=== PATIENT | female | born 1940 | race Caucasian/White ===

== ENCOUNTER 2018-03-11 23:51 | Emergency (ER) | payer OTHER, MEDICARE ==
--- NOTE | 2018-03-12 00:09 | ED DYSPNEA/ASTHMA COMPLAINT ---
History of Present Illness General Chief Complaint: Dyspnea (COPD, CHF, Other) Stated Complaint: DIFF BREATHING Source: patient Exam Limitations: no limitations Vital Signs & Intake/Output Vital Signs & Intake/Output Vital Signs Date Time Temp Pulse Resp B/P B/P Pulse O2 O2 Flow FiO2 Mean Ox Delivery Rate 03/12 0231 74 20 93 Room Air Room Air 03/12 0039 95 Room Air Room Air 03/12 0029 96 03/12 0016 97.7 70 20 151/76 95 Room Air Allergies Coded Allergies: codeine (Intermediate, LIGHTHEADED 03/12/18) Reconcile Medications Prednisolone 15 MG/5 ML SOLUTION 10 ML PO QDAY bronchospasm Triage Nurses Notes Reviewed? yes Onset: Gradual Duration: day(s): Timing: recent history Severity: moderate Activities at Onset: none Prior Episodes/Possible Cause: unknown cause Modifying Factors: Improves With: rest. Associated Symptoms: cough, wheezing HPI: 77 yo woman h/o copd, presents with 1-2 hours of dyspnea and wheezing while in the car. She notes no chest pain, sputum, dizziness, nausea, vomiting. She is otherwise well. Past History Travel History Traveled to [place] past 21 day No Medical History Any Pertinent Medical History? see below for history Respiratory: COPD Surgical History Surgical History: non-contributory Family History Hx Contributory? No Review of Systems Review of Systems Constitutional: Denies: see HPI. Physical Exam Physical Exam Respiratory: wheezing Comments: Review of Systems - except as otherwise noted in HPI Review of Systems Constitutional:no symptoms. EENTM:no symptoms. Respiratory:no symptoms. Cardiovascular:no symptoms. GI:no symptoms. Genitourinary:no symptoms. Musculoskeletal:no symptoms. Skin:no symptoms. Neurological/Psychological:no symptoms. Hematologic/Endocrine:no symptoms. Immunologic/Allergic:no symptoms. All Other Systems: Reviewed and Negative Physical Exam Physical Exam General Appearance: well developed/nourished, no apparent distress Head: atraumatic, normal appearance Eyes: Bilateral: normal appearance. Ears, Nose, Throat: normal pharynx, normal ENT inspection Neck: normal inspection, supple, full range of motion Respiratory: MODERATE WHEEZING BILATERALLY, SYMMETRICAL, PROLONGED EXPIRATORY PHASE Cardiovascular: regular rate/rhythm Gastrointestinal: normal bowel sounds, soft, non-tender, no organomegaly Back: normal inspection, normal range of motion Extremities: normal inspection, normal capillary refill, normal range of motion, no edema Neurologic/Psych: no motor/sensory deficits, awake, alert, oriented x 3 Skin: intact, normal color, warm/dry Core Measures ACS in differential dx? No CVA/TIA Diagnosis No Sepsis Present: No Sepsis Focused Exam Completed? No Progress Differential Diagnosis: asthma, bronchitis, CHF, COPD, pneumonia Plan of Care: Orders Procedure Date/time Status TROPONIN LEVEL 03/11 2358 Complete LIPASE 03/11 2358 Complete HEPATIC FUNCTION PANEL 03/11 2358 Complete D-DIMER 03/11 2358 Complete CBC WITHOUT DIFFERENTIAL 03/11 2358 Complete BASIC METABOLIC PANEL 03/11 2358 Complete AMYLASE 03/11 2358 Complete EKG 03/11 2353 Active Laboratory Tests 03/12/18 0029: Anion Gap 11, Estimated GFR 48 L, BUN/Creatinine Ratio 11.8, Glucose 83, Calcium 10.5 H, Total Bilirubin 0.5, Direct Bilirubin 0.2, AST 21, ALT 23, Alkaline Phosphatase 132 H, Troponin I < 0.01, Total Protein 7.2, Albumin 4.0, Amylase 39, Lipase 32, D-Dimer High Sensitivty 945 H, CBC w Diff NO MAN DIFF REQ, RBC 4.13 L, MCV 95.4, MCH 32.2 H, MCHC 33.7, RDW 13.8, MPV 7.4, Gran % 58.8, Lymphocytes % 26.6, Monocytes % 10.1 H, Eosinophils % 3.7, Basophils % 0.8, Absolute Granulocytes 5.6, Absolute Lymphocytes 2.5, Absolute Monocytes 1.0 H, Absolute Eosinophils 0.4, Absolute Basophils 0.1 Diagnostic Imaging: Viewed by Me: Radiology Read, CT Scan. Discussed w/RAD: Radiology Read, CT Scan. Radiology Impression: PATIENT: ARNOL BLACKWOOD PRESENT AGE: 77 PATIENT ACCOUNT NO: [id number] : 38 LOCATION: [facility] ORDERING PHYSICIAN: Rigo Villela MD SERVICE DATE: 03/12/18 EXAM TYPE: CAT - CTA CHEST-PULMONARY EMBOLISM EXAMINATION: CT ANGIOGRAM OF THE CHEST WITH AND WITHOUT CONTRAST (CT PULMONARY ANGIOGRAM FOR PE) CLINICAL INFORMATION: Dyspnea. COMPARISON: Radiograph from 03/11/2019 TECHNIQUE: Prior to contrast administration, noncontrast localization images were obtained. Subsequently, multidetector volumetric imaging was performed from the thoracic inlet to below the diaphragms following the administration of 60 mL Optiray 320 intravenous contrast. No contrast reaction reported. Sagittal, coronal, and MIP oblique sagittal reformatted images were obtained on the CT workstation, uploaded to PACS, and reviewed. Total exam dose-length product 155 mGy-cm. FINDINGS: QUALITY OF STUDY/CONTRAST BOLUS: Satisfactory PULMONARY ARTERIES: No central or segmental pulmonary emboli. THORACIC AORTA: No aneurysm or dissection. Tortuous course of the aorta with mild atherosclerotic calcifications. There is partial visualization of an abdominal aortic aneurysm, measuring 3.6 cm AP. Stenosis at the origin of the right main renal artery. LUNG : Linear secretions noted within the trachea extending into the right mainstem bronchus. There is severe centrilobular emphysema. No dense consolidation. Right upper lobe peripheral calcified granuloma. PLEURA: No pleural effusion or pneumothorax. MEDIASTINUM: The heart is normal in size. There is a small pericardial effusion. No mediastinal lymphadenopathy. Large hiatal hernia. No evidence of septal bowing or right heart strain. CHEST WALL/AXILLA: No axillary or internal mammary lymphadenopathy. OSSEOUS STRUCTURES: No acute or suspicious osseous abnormality. Prominent thoracic kyphosis. Multilevel vertebral body compression deformities. UPPER ABDOMEN: Left renal upper pole 0.2 cm calculus, 7 cm from the posterior axillary line. Right renal cyst. No reflux of contrast into the hepatic veins to suggest elevated right heart pressures. IMPRESSION: 1. No pulmonary embolism. 2. Severe emphysema. 3. 3.6 cm abdominal aortic aneurysm. VTE: negative DICTATED BY: Bryce Álvarez MD DATE/TIME DICTATED:03/12/18207 MAINTENANCE ANALYST:FELICITA DATE/TIME TRANSCRIBED:03/12/18207 CONFIDENTIAL, DO NOT COPY WITHOUT APPROPRIATE AUTHORIZATION. <Electronically signed in Other Vendor System> SIGNED BY: Bryce Álvarez MD 03/12/18215 CXR Impression: PATIENT: ARNOL BLACKWOOD PRESENT AGE: 77 PATIENT ACCOUNT NO: [id number] : 38 LOCATION: [facility] ORDERING PHYSICIAN: Rigo Villela MD SERVICE DATE: 03/11/189959 EXAM TYPE: RAD - XRY- PORTABLE CHEST XRAY EXAMINATION: XR PORTABLE CHEST CLINICAL INFORMATION: Chest pain COMPARISON: None TECHNIQUE: Portable frontal view of the chest was obtained. FINDINGS: The lungs are well expanded. Prominent interstitial markings are seen bilaterally. No pleural effusion or pneumothorax. The cardiac silhouette is normal in size with a tortuous and calcified aorta. There may be a hiatal hernia. No acute osseous abnormality noted. IMPRESSION: Prominent interstitial markings are present bilaterally. The appearance is nonspecific, particularly with no prior studies for comparison. Considerations include chronic change, mild edema, or a small airways process. DICTATED BY: Bryce Álvarez MD DATE/TIME DICTATED:03/12/1832 MAINTENANCE ANALYST:FELICITA DATE/ TIME TRANSCRIBED:03/12/1832 CONFIDENTIAL, DO NOT COPY WITHOUT APPROPRIATE AUTHORIZATION. <Electronically signed in Other Vendor System> SIGNED BY: Bryce Álvarez MD 03/12/1837 Initial ED EKG: sinus rhythm, no acute changes. Departure Departure Disposition: HOME OR SELF CARE Condition: Stable Clinical Impression Primary Impression: COPD exacerbation Referrals: Ca Simmons APRN (PCP/Family) Departure Forms: Customer Survey General Discharge Information Prescriptions: Current Visit Scripts Prednisolone 10 ML PO QDAY #50 ML Comments 03/12/18, 2:36am... pt feeling better, stable 02 sat throughout ed stay without 02. upon repeat exam, pt with clear lungs labs/cxr/ct scan benign... pt safe for discharge.... close follow up advised. Critical Care Note Critical Care Note Critical Care Time: non-applicable
[2018-03-12 00:16] VITALS: BP 151/76
--- NOTE | 2018-03-12 00:38 | RADIOLOGY REPORT ---
EXAMINATION: XR PORTABLE CHEST CLINICAL INFORMATION: Chest pain COMPARISON: None TECHNIQUE: Portable frontal view of the chest was obtained. FINDINGS: The lungs are well expanded. Prominent interstitial markings are seen bilaterally. No pleural effusion or pneumothorax. The cardiac silhouette is normal in size with a tortuous and calcified aorta. There may be a hiatal hernia. No acute osseous abnormality noted. IMPRESSION: Prominent interstitial markings are present bilaterally. The appearance is nonspecific, particularly with no prior studies for comparison. Considerations include chronic change, mild edema, or a small airways process.
[2018-03-12 00:50] LABS: ABSOLUTE BASOPHIL COUNT 0.1 /CUMM (0.0-0.2); ABSOLUTE EOSINOPHIL COUNT 0.4 /CUMM (0.0-0.7); ABSOLUTE GRANULOCYTE CT 5.6 /CUMM (1.4-6.5); ABSOLUTE LYMPH COUNT 2.5 /CUMM (1.2-3.4); BASOPHIL % 0.8 % (0.0-2.0); EOSINOPHIL % 3.7 % (0-5); GRANULOCYTE % 58.8 % (42.2-75.2); HEMATOCRIT 39.5 % (37-47); MEAN CORPUSCULAR HGB 32.2 PG (27.0-31.0); MEAN CORPUSCULAR HGB CONC 33.7 G/DL (33.0-37.0); MEAN CORPUSCULAR VOLUME 95.4 FL (81.0-99.0); MEAN PLATELET VOLUME 7.4 FL (7.4-10.4); PLATELET COUNT 320 /CUMM (130-400); RBC DISTRIBUTION WIDTH 13.8 % (11.5-14.5); RED BLOOD CELL CT 4.13 /CUMM (4.20-5.40); WHITE BLOOD CELL COUNT 9.5 /CUMM (4.8-10.8)
--- NOTE | 2018-03-12 02:16 | CT SCAN REPORT ---
EXAMINATION: CT ANGIOGRAM OF THE CHEST WITH AND WITHOUT CONTRAST (CT PULMONARY ANGIOGRAM FOR PE) CLINICAL INFORMATION: Dyspnea. COMPARISON: Radiograph from 03/11/2019 TECHNIQUE: Prior to contrast administration, noncontrast localization images were obtained. Subsequently, multidetector volumetric imaging was performed from the thoracic inlet to below the diaphragms following the administration of 60 mL Optiray 320 intravenous contrast. No contrast reaction reported. Sagittal, coronal, and MIP oblique sagittal reformatted images were obtained on the CT workstation, uploaded to PACS, and reviewed. Total exam dose-length product 155 mGy-cm. FINDINGS: QUALITY OF STUDY/CONTRAST BOLUS: Satisfactory PULMONARY ARTERIES: No central or segmental pulmonary emboli. THORACIC AORTA: No aneurysm or dissection. Tortuous course of the aorta with mild atherosclerotic calcifications. There is partial visualization of an abdominal aortic aneurysm, measuring 3.6 cm AP. Stenosis at the origin of the right main renal artery. LUNG: Linear secretions noted within the trachea extending into the right mainstem bronchus. There is severe centrilobular emphysema. No dense consolidation. Right upper lobe peripheral calcified granuloma. PLEURA: No pleural effusion or pneumothorax. MEDIASTINUM: The heart is normal in size. There is a small pericardial effusion. No mediastinal lymphadenopathy. Large hiatal hernia. No evidence of septal bowing or right heart strain. CHEST WALL/AXILLA: No axillary or internal mammary lymphadenopathy. OSSEOUS STRUCTURES: No acute or suspicious osseous abnormality. Prominent thoracic kyphosis. Multilevel vertebral body compression deformities. UPPER ABDOMEN: Left renal upper pole 0.2 cm calculus, 7 cm from the posterior axillary line. Right renal cyst. No reflux of contrast into the hepatic veins to suggest elevated right heart pressures. IMPRESSION: 1. No pulmonary embolism. 2. Severe emphysema. 3. 3.6 cm abdominal aortic aneurysm. VTE: negative
[2018-03-12] MEDS ORDERED: PREDNISOLO15 MG/5 M4 PO (02:27)
== END 2018-03-12 02:40 ==
LOC: ERH 23:51
PROVIDERS: Pediatrics
DX: J44.1 Chronic obstructive pulmonary disease with (acute) exacerbation (principal)
CPT/HCPCS: 71045; 93005; 93010; 96374; J2930

== ENCOUNTER 2018-07-04 19:59 | Inpatient (IN) | payer OTHER, MEDICARE ==
[~2018-07-04] VITALS: Ht 144.8 cm; Wt 49.0 kg
[~2018-07-04 19:59] MED LIST: PREDNISOLO15 MG/5 M4 PO
[2018-07-04 21:01] LABS: ABSOLUTE BASOPHIL COUNT 0 /CUMM (0.0-0.2); ABSOLUTE EOSINOPHIL COUNT 0.3 /CUMM (0.0-0.7); ABSOLUTE GRANULOCYTE CT 4.5 /CUMM (1.4-6.5); ABSOLUTE LYMPH COUNT 2.4 /CUMM (1.2-3.4); ABSOLUTE MONOCYTE COUNT 0.7 /CUMM (0.10-0.60); BASOPHIL % 0.4 % (0.0-2.0); EOSINOPHIL % 3.2 % (0-5); GRANULOCYTE % 57.5 % (42.2-75.2); HEMATOCRIT 40.2 % (37-47); MEAN CORPUSCULAR HGB 31.2 PG (27.0-31.0); MEAN CORPUSCULAR HGB CONC 33.3 G/DL (33.0-37.0); MEAN CORPUSCULAR VOLUME 93.7 FL (81.0-99.0); MEAN PLATELET VOLUME 6.7 FL (7.4-10.4); PLATELET COUNT 346 /CUMM (130-400); RBC DISTRIBUTION WIDTH 13.7 % (11.5-14.5); RED BLOOD CELL CT 4.29 /CUMM (4.20-5.40); WHITE BLOOD CELL COUNT 7.9 /CUMM (4.8-10.8)
--- NOTE | 2018-07-04 21:05 | RADIOLOGY REPORT ---
EXAMINATION: XR CHEST CLINICAL INFORMATION: Shortness of breath COMPARISON: Chest x-ray 03/12/2018 TECHNIQUE: 2 views of the chest were obtained. FINDINGS: There is a large hiatal hernia. No change of the cardiac and mediastinal contours. Thoracic aorta is uncoiled with calcifications of the wall. There is stable mild increased interstitial lung markings. There is no acute infiltrate. There is no pulmonary vascular congestion. There is no pleural effusion or pneumothorax. There is a kyphosis of dorsal spine with multilevel compression deformities of vertebrae. Compared to the prior chest x-ray there has been no change IMPRESSION: No acute abnormality of the chest.
--- NOTE | 2018-07-05 01:35 | ED DYSPNEA/ASTHMA COMPLAINT ---
History of Present Illness General Chief Complaint: Dyspnea (COPD, CHF, Other) Stated Complaint: "DIFF. BREATHING, HX COPD" Source: patient, family, old records Exam Limitations: no limitations Vital Signs & Intake/Output Vital Signs & Intake/Output Vital Signs Date Time Temp Pulse Resp B/P B/P Pulse O2 O2 Flow FiO2 Mean Ox Delivery Rate 07/05 0541 96.0 104 20 142/65 94 Room Air 07/05 0511 94 07/05 0449 96.8 103 28 178/82 94 Room Air 07/05 0215 93 07/05 0120 Room Air 07/05 0100 98.0 97 22 178/74 95 Room Air 07/05 0055 99 Aerosol 9L Mask 07/05 0045 95 07/04 2028 96.9 87 18 123/68 95 Room Air Allergies Coded Allergies: codeine (Intermediate, LIGHTHEADED 03/12/18) Reconcile Medications Albuterol Sulfate (Ventolin Hfa) 90 MCG HFA.AER.AD 2 PUF INH Q4-6 PRN PRN COPD (Reported) Amlodipine Besylate 5 MG TABLET 1 TAB PO DAILY HTN (Reported) Benazepril HCl 20 MG TABLET 1 TAB PO DAILY HTN (Reported) Levothyroxine Sodium 50 MCG TABLET 1 TAB PO DAILY HYPOTHYROIDISM (Reported) Omeprazole 20 MG CAPSULE.DR 1 CAP PO DAILY REFLUX (Reported) Prednisolone 15 MG/5 ML SOLUTION 10 ML PO QDAY bronchospasm Simvastatin (Simvastatin*) 10 MG TABLET 1 TAB PO QPM HLD (Reported) Triage Note: PT TO ED WITH C/O WORSENING SOB BEGINNING 1.5 HOURS AGO. DENIES CP. WAS WALKING WHEN SYMPTOMS BEGAN. HX COPD, +SMOKER. TOOK INHALER W/O RELIEF. 02 SAT 95% RA IN TRIAGE. ABLE TO SPEAK IN FULL SENTENCES. Triage Nurses Notes Reviewed? yes Onset: Just prior to arrival Duration: hour(s):, constant, continues in ED, getting worse Timing: recent history Severity: moderate, severe Activities at Onset: activity Prior Episodes/Possible Cause: occasional episodes Modifying Factors: Improves With: rest. Worsens With: movement. Associated Symptoms: cough, wheezing, weakness LMP (ages 10-50): post menopausal : No Patient currently breastfeeds: No HPI: Several hours prior to admission patient complains of increasing shortness of breath chest tightness productive cough of white sputum. She denies fever chills nausea vomiting diarrhea abdominal pain chest pain headache dysuria rash bleeding. Past History Travel History Traveled to [place] past 21 day No Medical History Any Pertinent Medical History? see below for history Neurological: NONE EENT: NONE Cardiovascular: hypertension Respiratory: COPD Gastrointestinal: NONE Hepatic: NONE Renal: NONE Musculoskeletal: NONE Psychiatric: NONE Endocrine: hypothyroidism Surgical History Surgical History: non-contributory Psychosocial History What is your primary language Greek Tobacco Use: Current Daily Use Daily Tobacco Use Amount/Type: => 5 Cigarettes daily Family History Hx Contributory? No Review of Systems Review of Systems Constitutional: Reports: see HPI, weakness. EENTM: Reports: no symptoms. Respiratory: Reports: see HPI, cough, short of breath, sputum production. Cardiovascular: Reports: see HPI, chest pain. GI: Reports: no symptoms. Genitourinary: Reports: no symptoms. Musculoskeletal: Reports: no symptoms. Skin: Reports: no symptoms. Hematologic/Endocrine: Reports: no symptoms. Immunologic/Allergic: Reports: no symptoms. All Other Systems: Reviewed and Negative Physical Exam Physical Exam General Appearance: well developed/nourished, alert, awake, anxious, moderate distress, severe distress, obese Head: atraumatic, normal appearance Eyes: Bilateral: normal appearance, PERRL, EOMI. Ears, Nose, Throat: normal pharynx, normal ENT inspection, hearing grossly normal Neck: normal inspection, supple, full range of motion, no midline tenderness Respiratory: chest non-tender, decreased breath sounds, rhonchi, respiratory distress Cardiovascular: regular rate/rhythm, murmur, normal peripheral pulses, norml femoral pulses equa Peripheral Pulses: 4+ carotid (R), 4+ carotid (L) Gastrointestinal: normal bowel sounds, soft, non-tender, no organomegaly Extremities: normal inspection, pedal edema Neurologic/Psych: no motor/sensory deficits, awake, alert, oriented x 3, normal gait, disoriented x 3 Skin: intact Lymphatic: no anterior cervical carlito Core Measures ACS in differential dx? No CVA/TIA Diagnosis No Sepsis Present: No Sepsis Focused Exam Completed? No Progress Differential Diagnosis: asthma, bronchitis, CHF, COPD, pneumonia Plan of Care: Orders Procedure Date/time Status Heart Healthy Diet 07/05 B Active TROPONIN LEVEL 07/05 06 Complete MAGNESIUM 07/05 06 Complete BASIC ELECTROLYTES PLUS BUN&CR 07/05 06 Complete EKG 07/05 0600 Active Weight 07/05 0506 Active Teach/Educate 07/05 0506 Active Pain Treatment and Response 07/05 0506 Active Nutritional Intake, Monitor 07/05 0506 Active Isolation 07/05 0506 Active Patient Care Conference 07/05 0506 Active ECHOCARDIOGRAM 07/05 0442 Active TRC EVALUATION (GEN) 07/05 0440 Active OXYGEN SETUP (GEN) 07/05 0440 Active PT Evaluate & Treat 07/05 044 Active Saline Lock 07/05 044 Active Pathway - chart 07/05 044 Active House Staff 07/05 044 Active Code Status 07/05 044 Active Patient Data 07/05 0259 Active OXYGEN SETUP (GEN) 07/05 022 Active Saline Lock 07/05 022 Active Admit to inpatient 07/05 022 Active Vital Signs 07/05 022 Active Code Status 07/05 022 Complete Intake & Output 07/05 010 Active VTE Mechanical Prophylaxis 07/05 UNK Active Heat/Cold Therapy 07/05 UNK Active Activity/Ambulation 07/05 UNK Active TROPONIN LEVEL 07/04 2033 Complete MAGNESIUM 07/04 2033 Complete COMPREHENSIVE METABOLIC PANEL 07/04 2033 Complete CBC WITHOUT DIFFERENTIAL 07/04 2033 Complete EKG 07/04 2004 Active Current Medications Sig/Arik Start time Last Medication Dose Stop Time Status Admin Atorvastatin Calcium 5 MG 1700 07/05 1700 AC (Lipitor) Amlodipine Besylate 5 MG DAILY 07/05 0900 AC (Norvasc) Lisinopril 20 MG DAILY 07/05 09 AC (Prinivil) Omeprazole 20 MG DAILY 07/05 09 AC (Prilosec) Levothyroxine Sodium 0.05 MG DAILY AC 07/05 0700 AC (Synthroid) Albuterol Sulfate 3 ML Q6 07/05 06 AC (Proventil) Heparin Sodium 5,000 UNIT Q8 07/05 06 AC (Porcine) Acetaminophen 650 MG Q6P PRN 07/05 0445 AC (Tylenol) Ipratropium Hubbell 2.5 ML Q6-PRN PRN 07/05 044 AC (Atrovent) Lidocaine 1 PAT Q24H PRN 07/05 044 AC (Lidoderm) Laboratory Tests 07/05/18 0540: Anion Gap 9, Estimated GFR > 60, BUN/Creatinine Ratio 15.7, Magnesium 1.7, Troponin I < 0.01 07/04/18 2055: Anion Gap 7, Estimated GFR > 60, BUN/Creatinine Ratio 14.3, Glucose 106 H, Calcium 10.7 H, Magnesium 1.9, Total Bilirubin 0.5, AST 25, ALT 26, Alkaline Phosphatase 113, Troponin I < 0.01, Total Protein 7.3, Albumin 4.1, Globulin 3.2 , Albumin/Globulin Ratio 1.3, CBC w Diff NO MAN DIFF REQ, RBC 4.29, MCV 93.7, MCH 31.2 H, MCHC 33.3, RDW 13.7, MPV 6.7 L, Gran % 57.5, Lymphocytes % 30.1, Monocytes % 8.8, Eosinophils % 3.2, Basophils % 0.4, Absolute Granulocytes 4.5, Absolute Lymphocytes 2.4, Absolute Monocytes 0.7 H, Absolute Eosinophils 0.3, Absolute Basophils 0 Diagnostic Imaging: Viewed by Me: Radiology Read. Discussed w/RAD: Radiology Read. CXR Impression: no acute abnormality, no infiltrates Initial ED EKG: normal axis, normal intervals, normal p-waves, normal QRS complex, normal sinus rhythm, nonspecific ST T wave chg Prior EKG: unchanged Rhythm Strip: sinus tachycardia Departure Departure Disposition: STILL A PATIENT Condition: Stable Clinical Impression Primary Impression: COPD exacerbation Secondary Impressions: Hyponatremia Referrals: Sena Araya APRN (PCP/Family) Departure Forms: Customer Survey General Discharge Information Admission Note Spoke With: Honorio Sanders MD Documentation of Exam: Documentation of any treatments & extenuating circumstances including Concerns Regarding Discharge (functional status, medication knowledge or non-compliance, living conditions, etc.) that warrant an admission rather than observation: Supplemental oxygen serial beta agonist nebs IV steroids serial lab exam pulmonary evaluation medication adjustment continuing care discharge planning Critical Care Note Critical Care Note Critical Care Time: non-applicable
--- NOTE | 2018-07-05 03:22 | History & Physical ---
Arnoldo Burciaga 07/05/18 0321: General Information and HPI MD Statement: I have seen and personally examined ARNOL BLACKWOOD and documented this H&P. The patient is a 77 year old F who presented with a patient stated chief complaint of [hard time breathing]. Source of Information: patient Exam Limitations: poor historian History of Present Illness: 77 year old female with history of COPD not on O2 but active cigarette use, mitral regurgitation, AAA, presents to the ED with increased shortness of breath. The patient was at home walking with her daughter when she suddenly felt very short of breath and needed to sit down. Sitting down did not allow her to catch her breath and she was brought inside to lay down before being brought to the [place] ED. Although she would experience dyspnea after walking short distances at home prior to today, the patient now can only walk a few feet before becoming very short of breath. She denied chest pain, syncope or dizziness, headache, fever, chills. She did report associated palpitations and a worsening cough productive of whitish sputum for the past few days, as well as chronic edema of her lower extremities bilaterally. The patient currently smokes 5 cigarettes per day, and she has smoked all of her life, occasionally more and sometimes less, but regardless a very extensive smoking history. She denied alcohol or illicit drug use. Allergies/Medications Allergies: Coded Allergies: codeine (Intermediate, LIGHTHEADED 03/12/18) Home Med list Albuterol Sulfate (Ventolin Hfa) 90 MCG HFA.AER.AD 2 PUF INH Q4-6 PRN PRN COPD (Reported) Amlodipine Besylate 5 MG TABLET 1 TAB PO DAILY HTN (Reported) Benazepril HCl 20 MG TABLET 1 TAB PO DAILY HTN (Reported) Levothyroxine Sodium 50 MCG TABLET 1 TAB PO DAILY HYPOTHYROIDISM (Reported) Omeprazole 20 MG CAPSULE.DR 1 CAP PO DAILY REFLUX (Reported) Prednisolone 15 MG/5 ML SOLUTION 10 ML PO QDAY bronchospasm Simvastatin (Simvastatin*) 10 MG TABLET 1 TAB PO QPM HLD (Reported) Past History Travel History Traveled to [place] past 21 day No Medical History Neurological: NONE EENT: NONE Cardiovascular: hypertension Respiratory: COPD Gastrointestinal: NONE Hepatic: NONE Renal: NONE Musculoskeletal: NONE Psychiatric: NONE Endocrine: hypothyroidism Surgical History Surgical History: non-contributory Review of Systems Review of Systems Constitutional: Denies: chills, diaphoresis, fever. Cardiovascular: Reports: orthopena, palpitations, peripheral edema. Denies: chest pain. Respiratory: Reports: cough, orthopnea, short of breath, sputum production (whitish). GI: Denies: abdominal pain, nausea, vomiting. Neurological/Psychological: Denies: headache. Exam & Diagnostic Data Last 24 Hrs of Vital Signs/I&O Vital Signs Date Time Temp Pulse Resp B/P B/P Pulse O2 O2 Flow FiO2 Mean Ox Delivery Rate 07/05 0215 93 07/05 0120 Room Air 07/05 0100 98.0 97 22 178/74 95 Room Air 07/05 0055 99 Aerosol 9L Mask 07/05 0045 95 07/04 2028 96.9 87 18 123/68 95 Room Air Intake & Output 07/05 0800 07/05 0000 07/04 1600 Intake Total 1000 Output Total Balance 1000 Intake, IV 1000 Last 24 Hrs of Labs/Fantasma: Laboratory Tests 07/04/182054: Anion Gap 7, Estimated GFR > 60, BUN/Creatinine Ratio 14.3, Glucose 106 H, Calcium 10.7 H, Magnesium 1.9, Total Bilirubin 0.5, AST 25, ALT 26, Alkaline Phosphatase 113, Troponin I < 0.01, Total Protein 7.3, Albumin 4.1, Globulin 3.2 , Albumin/Globulin Ratio 1.3, CBC w Diff NO MAN DIFF REQ, RBC 4.29, MCV 93.7, MCH 31.2 H, MCHC 33.3, RDW 13.7, MPV 6.7 L, Gran % 57.5, Lymphocytes % 30.1, Monocytes % 8.8, Eosinophils % 3.2, Basophils % 0.4, Absolute Granulocytes 4.5, Absolute Lymphocytes 2.4, Absolute Monocytes 0.7 H, Absolute Eosinophils 0.3, Absolute Basophils 0 Assessment/Plan Assessment: 77 year old female with history of HTN, mitral regurgitation, COPD presents with dyspnea with minimal exertion. Problems: 1. Dyspnea likely secondary to worsened mitral regurgitation 2. COPD not requiring O2 3. HTN Plan: -Admit the patient to telemetry -Cardiology consultation -Echocardiogram -Lisinopril 20mg po daily -Amlodipine 5mg po daily -Lipitor 5mg po Q5pm -Levothyroxing 0.05mg po daily -Follow-up EKG & Troponin As Ranked By This Provider Problem List: 1. Dyspnea Core Measures/Misc (07/02) Acute Coronary Syndrome ACS Diagnosis: No Congestive Heart Failure Congestive Heart Failure Diagnosis No Cerebrovascular Accident CVA/TIA Diagnosis: No VTE (View Protocol) VTE Risk Factors Age>40 No Mechanical VTE Prophylaxis d/t N/A MechProphylax Ordered No VTE Pharm Prophylaxis d/t NA PharmProphylax ordered Sepsis (View protocol) Sepsis Present: No If YES complete Sepsis Event Note If YES complete Sepsis Event Note Leah Sepulveda MD 07/05/18 0328: Core Measures/Misc (07/02) Sepsis (View protocol) If YES complete Sepsis Event Note If YES complete Sepsis Event Note Resident Review Statement Resident Statement: examined this patient, discussed with architecture internship, agreed with architecture internship, reviewed EMR data (avail), amended to note Other Findings: Patient is a 77-year-old female with past medical history of COPD, hypertension, hypothyroidism, current smoker, heart murmur, abdominal aortic aneurysm, PVD presenting this admission with chief complaint of shortness of breath. Patient's history was limited as she was a poor historian. Patient's daughter was not present at the time of interview. Patient reports that day of admission she was walking outside her apartment at which point she started feeling short of breath and had difficulty catching her breath. Reports she sat down on a bench and felt slightly better and then returned to her apartment. After which she spoke to her daughter who brought her in to the ED for further evaluation. Patient reports she has recently experienced increased shortness of breath with exertion. Reports that it has been increasingly harder to walk shorter and shorter distances without getting short of breath. Reports a productive cough with white phlegm. Denies fever, chills, chest pain, orthopnea. Reports palpitations and lower extremity edema which she reports is chronic. Patient reports that her slip tender is Dr. Thomas when she saw one to 2 months ago and is unable to remember if she had any tests. Reports that she had no changes in her medications. Patient states that she sees Dr. Thomas due to a heart murmur and reports fluid around her heart. Patient has a history of COPD and is currently on an albuterol inhaler only. Reports that she is not on oxygen at home. Past medical history: As above Social history: Patient lives by herself, reports smoking 5 cigarettes per day which she has cut down significantly. States that she has been smoking "all her life". Denies any alcohol or other drug use. Patient reports ambulating independently. Allergies: Codeine (lightheadedness and dizziness) Medications: Amlodipine 5 mg, Benzapril 20 mg, levothyroxine 50 g, omeprazole 20 mg, simvastatin 10 mg On admission: MAXIMUM TEMPERATURE 98.0, heart rate 87-97, respiration rate 18-22, blood pressure initially 123/68 went up to 178/74, saturating between 95-99% on room air. Physical exam as above Labs significant only for sodium of 130, chloride 96, glucose 106, calcium 10.7 Chest x-ray was negative for any acute abnormality Patient is a 77-year-old female with past medical history significant for COPD, heart murmur likely mitral regurg with a loud pansystolic murmur heard on auscultation presenting with worsening dyspnea on exertion. Patient's chest x- ray was negative for any acute cardiopulmonary findings. On exam patient's lung sounds were clear to auscultation and patient did not appear fluid overloaded. Patient did have some bilateral lower extremity edema which is chronic. Patient in the ED he received IV Solu-Medrol 125 mg 1, DuoNeb treatments. Problems: Dyspnea secondary likely to mitral regurgitation and mild COPD exacerbation Hyponatremia Chronic conditions: COPD, hypertension, hypothyroidism, GERD, chronic bilateral lower extremity swelling, PVD Plan: Admit to telemetry Continuos telemetry monitoring IV Lasix 20 mg 1 Repeat EKG in the morning Monitor electrolytes Cardiology consult placed with Dr. Thomas TRNahum and CristobaloNeb's every 6 hours when necessary Blood pressure control with home medication: Amlodipine and benazepril Continue levothyroxine, omeprazole, simvastatin Diet: Heart healthy DVT prophylaxis: Alps and pharm Code: Full code Honorio Sanders 07/05/18 0333: Core Measures/Misc (07/02) Sepsis (View protocol) If YES complete Sepsis Event Note If YES complete Sepsis Event Note Attending MD Review Statement Attending Statement Attending MD Statement: examined this patient, discuss w/resident/PA/CODER OPERATOR, agreed w/resident/PA/CODER OPERATOR, discussed with family, reviewed EMR data (avail), reviewed images, amended to note Attending Assessment/Plan: Addendum by . Patient was seen and examined at bedside today ( 07/05/18 ) at 3 Am.. Reviewed the history physical done by the resident. Reviewed the past medical family, family, social history. ROS: 10 point system reviewed and negative except as described above. Additional details: Patient is 77 years old female with history of hypertension, hyperlipidemia, chronic leg swelling bilaterally, abdominal aortic exam of 4.3 cm, kyphosis, mild COPD, active smoker, who has baseline dyspnea, who cannot walk more than a few yards at home was brought in for evaluation of increased shortness of breath and cough. Patient and family says that she usually walks a few steps in and around the home before getting short of breath. But for the last couple of days she is not able to walk even usual distances, also started having cough with increased sputum. No fever, chest pain, palpitations or other complaints. She has a chronic leg edema. She also has a vascular disease. She smokes 5 cigarettes a day. Not on any Lasix at home. ED initially admitted the patient for COPD exacerbation. Exam: Alert, awake, oriented 3, able to speak full sentences. No JVD, neck is supple, no thyromegaly. Kyphosis of thoracic spine noted. Lungs-no wheezing, no crackles. Cardiac examination-pansystolic murmur heard all of the chest but more prominent in the apical area in the left mid axillary area. Bilateral 3+ leg edema up to knees. Chest x-ray, prior CT chest, labs, PFTs are reviewed. Assessment and plan: #Worsening dyspnea, cough: This is likely due to her valvular heart disease mitral regurgitation or AR (no echo is available in system). patient has chronic dyspnea at baseline likely due to valvular disease, COPD. As per PFT done in December 2017 patient has mild COPD, on current examination does not suggest COPD exacerbation. Will put her on 20 mg IV Lasix daily. Get an echocardiogram. Also get cardiology evaluation. Patient has her own slip tender as an outpatient. Further management depending on the severity of the mitral valve and cardiology input. #mild COPD-do not think patient is an exacerbation. We will give her DuoNeb's. # htn- bp elevated, resume norvasc, add lisinopril if bp still, #hyponatremia, likely hypervolumic, expect to get better with lasix. watch. #hypercalcemia, repeat in am. #severe thoracic spine kyphosis-might be contributing to her dyspnea. #Bilateral leg swelling. Continue with the Lasix. Patient also has history of peripheral vascular disease. She is here to follow with vascular surgery as an outpatient. #History of hypothyroidism, hypertension-continue those medications. #Abdominal aortic aneurysm of 4.3 cm as per the family. #Smoker-smoking cessation was advised. Admit to telemetry. Reviewed with the resident. Agree with the rest of the plan as per resident's note. Dr.Ravinder Guillermina MD. Hospitalist. Pager: [phone], cell: [phone].
[2018-07-05] MEDS ORDERED: VENTOLIN HFA18 GM INH (04:46)
[2018-07-05] MEDS ORDERED: LEVOTHYROXINE50 MCG PO (04:46)
[2018-07-05] MEDS ORDERED: SIMVASTATIN10 M1 PO (04:47)
[2018-07-05] MEDS ORDERED: BENAZEPRIL HCL20 MG PO (04:47)
[2018-07-05] MEDS ORDERED: AMLODIPINE BESYL5 M1 PO (04:47)
[2018-07-05] MEDS ORDERED: OMEPRAZOLE20 M2 PO (04:48)
[2018-07-05 07:00] VITALS: BP 148/65
--- NOTE | 2018-07-05 08:27 | PN- Student ---
Subjective Subjective: Patient was seen and examined this am. Patient was alert and cooperative. Pt continues to report feeling short of breath on mild exertion (walking a short distance from room to restroom in ED) and short of breath at rest. Pt reports feeling palpitations on exertion. Pt appeared to have some difficulty remembering names of medications, and the name of the hospital, however she noted that the "names usually come to her at a later time". Review of Systems Review of Systems Constitutional: Denies: chills, diaphoresis, fever, unexplained weight loss. EENTM: Denies: throat pain. Cardiovascular: Reports: palpitations, peripheral edema. Denies: chest pain, orthopena, syncope. Respiratory: Reports: cough, short of breath, sputum production. Denies: hemoptysis, wheezing. GI: Denies: abdominal pain, constipation, diarrhea, nausea, bloody stool, vomiting. Genitourinary: Reports: nocturia. Denies: dysuria, hematuria. Hematologic/Endocrine: Reports: bruising. Denies: bleeding. Objective Objective: Current Medications Sig/Arik Start time Last Medication Dose Stop Time Status Admin Acetaminophen 650 MG Q6P PRN 07/05 0445 AC (Tylenol) Albuterol Sulfate 3 ML Q6 07/05 0600 AC (Proventil) Amlodipine Besylate 5 MG DAILY 07/05 09 AC (Norvasc) Atorvastatin Calcium 5 MG 1700 07/05 1700 AC (Lipitor) Heparin Sodium 5,000 UNIT Q8 07/05 0600 AC (Porcine) Ipratropium [place] 2.5 ML Q6-PRN PRN 07/05 0445 AC (Atrovent) Levothyroxine Sodium 0.05 MG DAILY AC 07/05 0700 AC (Synthroid) Lidocaine 1 PAT Q24H PRN 07/05 0445 AC (Lidoderm) Lisinopril 20 MG DAILY 07/05 0900 AC (Prinivil) Omeprazole 20 MG DAILY 07/05 09 AC (Prilosec) Results Results: Laboratory Tests 07/05/18 0540: Anion Gap 9, Estimated GFR > 60, BUN/Creatinine Ratio 15.7, Magnesium 1.7, Troponin I < 0.01 07/04/185: Anion Gap 7, Estimated GFR > 60, BUN/Creatinine Ratio 14.3, Glucose 106 H, Calcium 10.7 H, Magnesium 1.9, Total Bilirubin 0.5, AST 25, ALT 26, Alkaline Phosphatase 113, Troponin I < 0.01, Total Protein 7.3, Albumin 4.1, Globulin 3.2 , Albumin/Globulin Ratio 1.3, CBC w Diff NO MAN DIFF REQ, RBC 4.29, MCV 93.7, MCH 31.2 H, MCHC 33.3, RDW 13.7, MPV 6.7 L, Gran % 57.5, Lymphocytes % 30.1, Monocytes % 8.8, Eosinophils % 3.2, Basophils % 0.4, Absolute Granulocytes 4.5, Absolute Lymphocytes 2.4, Absolute Monocytes 0.7 H, Absolute Eosinophils 0.3, Absolute Basophils 0 PHYSICAL EXAM Last 24hrs of Vital Signs Vital Signs Date Time Temp Pulse Resp B/P B/P Pulse O2 O2 Flow FiO2 Mean Ox Delivery Rate 07/05 0541 96.0 104 20 142/65 94 Room Air 07/05 0511 94 07/05 0449 96.8 103 28 178/82 94 Room Air 07/05 0215 93 07/05 0120 Room Air 07/05 0100 98.0 97 22 178/74 95 Room Air 07/05 0055 99 Aerosol 9L Mask 07/05 0045 95 07/04 2028 96.9 87 18 123/68 95 Room Air Physical Exam General Appearance Alert, Cooperative, No Acute Distress Skin palmar erythema HEENT Atraumatic Cardiovascular Regular Rate, Normal S1, Normal S2, holosystolic murmur Lungs Clear to Auscultation Abdomen Normal Bowel Sounds, Soft, No Tenderness Extremities Normal Pulses, bilateral LE pitting edema Assessment/Plan Assessment: Ashlyn Castro is a 77yo F with a PMH of COPD not on home oxygen, HTN, HLD, hypothyroidism, mitral regurgitation, AAA, who presented to the ED with shortness of breath on exertion and at rest. Patient reports feeling short of breath when leaving her apartment to the elevator to smoke and was unable to catch her breath. Pt reports that she is usually short of breath with walking short distances and usually recovers with rest. She reports waking up 3-4x at night to urinate and feels short of breath at these times, but recovers with sitting down. She denies chest pain; reports palpitations with exertion, leg swelling, and productive cough of white sputum. Denies abdominal pain, nausea, vomiting, diarrhea, constipation, dysuria, hematuria. On PE, there was no wheezing, lungs were clear to auscultation, holosystolic murmur, bilateral LE swelling, and kyphosis. Labs show hyponatremia that is improving. CXR There is a large hiatal hernia. No change of the cardiac and mediastinal contours. Thoracic aorta is uncoiled with calcifications of the wall. There is stable mild increased interstitial lung markings. There is no acute infiltrate. There is no pulmonary vascular congestion. There is no pleural effusion or pneumothorax. There is a kyphosis of dorsal spine with multilevel compression deformities of vertebrae. Compared to the prior chest x-ray there has been no change IMPRESSION: No acute abnormality of the chest. Plan: 1. Dypsnea - secondary to worsening mitral regurgitation - f/u echocardiogram 2. COPD - monitor vitals - continue with home meds - patient already received 1 time dose of lasix and solumedrol - ? f/u pulmonary 3. Hyponatremia - monitor labs 4. HTN - monitor vitals - continue home meds 5. Continue home meds: atorvastatin, omeprazole, lisinopril, amlodipine, levothyroxine, albuterol, ipratropium
--- NOTE | 2018-07-05 13:36 | Cons- Cardiology ---
General Information and HPI Consulting Request Date of Consult: 07/05/18 Requested By: Aleja Hyatt MD Reason for Consult: Worsening shortness of breath Source of Information: patient, old records Exam Limitations: no limitations History of Present Illness: The patient is a 77-year-old female. 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 She has a history of COPD, not on home oxygen, who continues to smoke. She also has a history of mitral insufficiency, abdominal aortic aneurysm, etc. The patient presented to the emergency room with worsening shortness of breath. The patient noted that she had become more progressively short of breath over the last several weeks. She denied any other cardiac symptoms. No chest discomfort, no systemic symptoms such as fevers or chills, etc. She has had some cough but denies any significant sputum production. She was recently seen by Dr. Thomas in the office and had an echocardiogram performed which showed normal left ventricular function with no significant valvular heart disease. The echocardiogram was performed on 01/31 and showed only mild mitral insufficiency with mild to moderate aortic insufficiency and no evidence of significant pulmonary hypertension.. Allergies/Medications Allergies: Coded Allergies: codeine (Intermediate, LIGHTHEADED 03/12/18) Home Med List: Albuterol Sulfate (Ventolin Hfa) 90 MCG HFA.AER.AD 2 PUF INH Q4-6 PRN PRN COPD (Reported) Albuterol Sulfate 2.5 MG/3 ML (0.083 %) VIAL.NEB 1 Vial INH/KELSI Q4P PRN COPD Amlodipine Besylate 5 MG TABLET 1 TAB PO DAILY HTN (Reported) Benazepril HCl 20 MG TABLET 1 TAB PO DAILY HTN (Reported) Levothyroxine Sodium 50 MCG TABLET 1 TAB PO DAILY HYPOTHYROIDISM (Reported) Lidocaine (Lidoderm) 5 % ADH..PATCH 1 PAT EXT Q24H PRN PAIN SCALE 4-6 ( MODERATE) Omeprazole 20 MG CAPSULE.DR 1 CAP PO DAILY REFLUX (Reported) Prednisolone 15 MG/5 ML SOLUTION 10 ML PO QDAY bronchospasm Prednisone 10 MG TABLET 1 TAB PO DAILY COPD Simvastatin (Simvastatin*) 10 MG TABLET 1 TAB PO QPM HLD (Reported) Current Medications: Current Medications Sig/Arik Start time Last Medication Dose Route Stop Time Status Admin Acetaminophen 650 MG Q6P PRN 07/05 0445 AC PO Albuterol Sulfate 3 ML Q6 07/05 0600 AC INH Albuterol Sulfate 3 ML ONCE ONE 07/05 0200 DC 07/05 INH 07/05 0201 0215 Albuterol Sulfate 3 ML ONCE ONE 07/05 0030 DC 07/05 INH 07/05 0031 0044 Albuterol Sulfate 3 ML ONCE ONE 07/05 0030 DC 07/05 INH 07/05 0031 0054 Amlodipine Besylate 5 MG DAILY 07/05 0900 AC 07/05 PO 1111 Atorvastatin Calcium 5 MG 1700 07/05 1700 AC PO Furosemide 0 .STK-MED ONE 07/05 0443 DC IV Furosemide 20 MG ONCE ONE 07/05 0400 DC 07/05 IV 07/05 0401 0447 Heparin Sodium 5,000 UNIT Q8 07/05 06 AC (Porcine) SC Ipratropium [place] 2.5 ML Q6-PRN PRN 07/05 0445 AC INH Ipratropium [place] 2.5 ML ONCE ONE 07/05 0030 DC 07/05 INH 07/05 0031 0044 Levothyroxine Sodium 0.05 MG DAILY AC 07/05 0700 AC 07/05 PO 0827 Lidocaine 1 PAT Q24H PRN 07/05 0445 AC EXT Lisinopril 20 MG DAILY 07/05 0900 AC 07/05 PO 1111 Methylprednisolone 0 .STK-MED ONE 07/05 0042 DC .ROUTE Methylprednisolone 125 MG ONCE ONE 07/05 0030 DC 07/05 IV 07/05 0031 0046 Omeprazole 20 MG DAILY 07/05 0900 AC 07/05 PO 1111 Sodium Chloride 1,000 ML BOLUS ONE 07/05 0030 DC 07/05 IV 07/05 0129 0106 Past History Travel History Traveled to [place] past 21 day No Medical History Neurological: NONE EENT: NONE Cardiovascular: hypertension Respiratory: COPD Gastrointestinal: NONE Hepatic: NONE Renal: NONE Musculoskeletal: NONE Psychiatric: NONE Endocrine: hypothyroidism Blood Disorders: NONE Cancer(s): NONE 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 Home Services at Home: None Smoking Status: Current Everyday Smoker Exam & Diagnostic Data Vital Signs and I&O Vital Signs Date Time Temp Pulse Resp B/P B/P Pulse O2 O2 Flow FiO2 Mean Ox Delivery Rate 07/05 1111 100 148/65 07/05 1111 100 148/65 07/05 0829 97.2 100 18 148/65 93 Room Air 07/05 0700 97.2 100 18 148/65 93 Room Air Room Air 07/05 0541 96.0 104 20 142/65 94 Room Air 07/05 0511 94 07/05 0449 96.8 103 28 178/82 94 Room Air 07/05 0215 93 07/05 0120 Room Air 07/05 0100 98.0 97 22 178/74 95 Room Air 07/05 0055 99 Aerosol 9L Mask 07/05 0045 95 07/04 2028 96.9 87 18 123/68 95 Room Air Intake & Output 07/05 1600 07/05 0800 07/05 0000 07/04 1600 07/04 0800 07/04 0000 Intake Total 1000 Output Total Balance 1000 Intake, IV 1000 Physical Exam: General Appearance: well developed/nourished, elderly female, alert, awake, oriented Head: normal HEENT: Normal Neck: supple, JVP normal, carotid upstrokes normal bilaterally, no masses or thyromegaly Respiratory: chest non-tender, scattered bilateral rhonchi with slightly decreased air entry bilaterally Cardiovascular: regular rate/rhythm, normal S1, S2, 1/6 systolic murmur Abdomen: normal bowel sounds, soft, non-tender Extremities: normal inspection, no significant edema Vascular: Pulses are 2+ and equal bilaterally Neurologic: Grossly normal/nonfocal Labs/Fantasma Results: Laboratory Tests 07/05 07/04 0540 2054 Chemistry Sodium (137 - 145 mmol/L) 133 L 130 L Potassium (3.5 - 5.1 mmol/L) 3.6 4.5 Chloride (98 - 107 mmol/L) 101 96 L Carbon Dioxide (22 - 30 mmol/L) 23 26 Anion Gap (5 - 16) 9 7 BUN (7 - 17 mg/dL) 11 10 Creatinine (0.5 - 1.0 mg/dL) 0.7 0.7 Estimated GFR (>60 ml/min) > 60 > 60 BUN/Creatinine Ratio (7 - 25 %) 15.7 14.3 Glucose (65 - 99 mg/dL) 106 H Calcium (8.4 - 10.2 mg/dL) 9.9 10.7 H Magnesium (1.6 - 2.3 mg/dL) 1.7 1.9 Total Bilirubin (0.2 - 1.3 mg/dL) 0.5 AST (14 - 36 U/L) 25 ALT (9 - 52 U/L) 26 Alkaline Phosphatase (<127 U/L) 113 Troponin I (< 0.11 ng/ml) < 0.01 < 0.01 Total Protein (6.3 - 8.2 g/dL) 7.3 Albumin (3.5 - 5.0 g/dL) 4.1 Globulin (1.9 - 4.2 gm/dL) 3.2 Albumin/Globulin Ratio (1.1 - 2.2 %) 1.3 TSH (0.270 - 4.200 uIU/mL) 1.260 Free T4 (0.78 - 2.44 ng/dL) 1.65 Total T3 (0.97 - 1.69 ng/mL) 1.02 Hematology CBC w Diff NO MAN DIFF REQ WBC (4.8 - 10.8 /CUMM) 7.9 RBC (4.20 - 5.40 /CUMM) 4.29 Hgb (12.0 - 16.0 G/DL) 13.4 Hct (37 - 47 %) 40.2 MCV (81.0 - 99.0 FL) 93.7 MCH (27.0 - 31.0 PG) 31.2 H MCHC (33.0 - 37.0 G/DL) 33.3 RDW (11.5 - 14.5 %) 13.7 Plt Count (130 - 400 /CUMM) 346 MPV (7.4 - 10.4 FL) 6.7 L Gran % (42.2 - 75.2 %) 57.5 Lymphocytes % (20.5 - 51.1 %) 30.1 Monocytes % (1.7 - 9.3 %) 8.8 Eosinophils % (0 - 5 %) 3.2 Basophils % (0.0 - 2.0 %) 0.4 Absolute Granulocytes (1.4 - 6.5 /CUMM) 4.5 Absolute Lymphocytes (1.2 - 3.4 /CUMM) 2.4 Absolute Monocytes (0.10 - 0.60 /CUMM) 0.7 H Absolute Eosinophils (0.0 - 0.7 /CUMM) 0.3 Absolute Basophils (0.0 - 0.2 /CUMM) 0 Diagnostic Data EKG Results Sinus rhythm with nonspecific ST-T changes. Heart rate slightly faster than noted on prior ECG CXR Results FINDINGS: There is a large hiatal hernia. No change of the cardiac and mediastinal contours. Thoracic aorta is uncoiled with calcifications of the wall. There is stable mild increased interstitial lung markings. There is no acute infiltrate. There is no pulmonary vascular congestion. There is no pleural effusion or pneumothorax. There is a kyphosis of dorsal spine with multilevel compression deformities of vertebrae. Compared to the prior chest x-ray there has been no change IMPRESSION: No acute abnormality of the chest. Assessment/Plan Assessment/Plan Assessment: 1. Worsening shortness of breath 2. History of COPD 3. Hyponatremia 4. Hypertension 5. Bilateral lower extremity edema 6. History of abdominal aortic aneurysm 7. Ongoing tobacco use 8. Valvular heart disease-recent echocardiogram at Dr. Thomas's office performed in January 2018 showed mild mitral insufficiency and mild to moderate aortic insufficiency. Recommendations: -Continue respiratory treatments -Telemetry admission -Monitor intakes outputs and daily weights -Continue low-dose Lasix for now -At the moment, I do not see any evidence of overt heart failure. There is no significant CHF noted on the chest x-ray. No evidence of pleural effusions noted. -As noted above, the recent echocardiogram showed no significant valvular heart disease. -Follow-up echocardiogram pending -Consider noncontrast chest CT;? Could large hiatal hernia be causing any component of restrictive pulmonary disease, etc. -Consider formal pulmonary input Consult Acknowledgment - Thank you for your consult request.
[2018-07-05 15:00] VITALS: BP 158/88
[2018-07-05 15:46] VITALS: BP 162/92
--- NOTE | 2018-07-05 18:55 | Cons- Pulmonary ---
General Information and HPI Consulting Request Date of Consult: 07/05/18 Requested By: medical team/Dr. Maguire Reason for Consult: dyspnea Source of Information: patient Exam Limitations: no limitations History of Present Illness: 77 year old woman. Consultation requested for dyspnea in the setting of COPD. 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 Active smoker for years, now smokes about 5 cigarettes daily. Interested in quitting. She has been evaluated by Dr. Maguire - sees Dr. Thomas routinely. Progressive dyspnea over past few months/weeks. No fevers, no chills, no sick contacts. ECHO reveals mitral insufficiency, mild/mod aortic insufficiency, no evidence of significant pulmonary htn. CXR is unrevealing. Allergies/Medications Allergies: Coded Allergies: codeine (Intermediate, LIGHTHEADED 03/12/18) Home Med List: Albuterol Sulfate (Ventolin Hfa) 90 MCG HFA.AER.AD 2 PUF INH Q4-6 PRN PRN COPD (Reported) Amlodipine Besylate 5 MG TABLET 1 TAB PO DAILY HTN (Reported) Benazepril HCl 20 MG TABLET 1 TAB PO DAILY HTN (Reported) Levothyroxine Sodium 50 MCG TABLET 1 TAB PO DAILY HYPOTHYROIDISM (Reported) Omeprazole 20 MG CAPSULE.DR 1 CAP PO DAILY REFLUX (Reported) Prednisolone 15 MG/5 ML SOLUTION 10 ML PO QDAY bronchospasm Simvastatin (Simvastatin*) 10 MG TABLET 1 TAB PO QPM HLD (Reported) Current Medications: Current Medications Sig/Arik Start time Last Medication Dose Route Stop Time Status Admin Acetaminophen 650 MG Q6P PRN 07/05 0445 AC 07/05 PO 1628 Albuterol Sulfate 3 ML Q6 07/05 0600 AC INH Albuterol Sulfate 3 ML ONCE ONE 07/05 0200 DC 07/05 INH 07/05 0201 0215 Albuterol Sulfate 3 ML ONCE ONE 07/05 0030 DC 07/05 INH 07/05 0031 0044 Albuterol Sulfate 3 ML ONCE ONE 07/05 0030 DC 07/05 INH 07/05 0031 0054 Amlodipine Besylate 5 MG DAILY 07/05 0900 AC 07/05 PO 1111 Atorvastatin Calcium 5 MG 1700 07/05 1700 AC 07/05 PO 1848 Furosemide 0 .STK-MED ONE 07/05 0443 DC IV Furosemide 20 MG ONCE ONE 07/05 0400 DC 07/05 IV 07/05 0401 0447 Heparin Sodium 5,000 UNIT Q8 07/05 0600 AC 07/05 (Porcine) SC 1628 Ipratropium [place] 2.5 ML Q6-PRN PRN 07/05 0445 AC INH Ipratropium [place] 2.5 ML ONCE ONE 07/05 0030 DC 07/05 INH 07/05 0031 0044 Levothyroxine Sodium 0.05 MG DAILY AC 07/05 0700 AC 07/05 PO 0827 Lidocaine 1 PAT Q24H PRN 07/05 0445 AC EXT Lisinopril 20 MG DAILY 07/05 0900 AC 07/05 PO 1111 Magnesium Oxide 0 .STK-MED ONE 07/05 1633 DC PO Magnesium Oxide 400 MG ONE ONE 07/05 1615 DC 07/05 PO 07/05 1616 1630 Methylprednisolone 0 .STK-MED ONE 07/05 0042 DC .ROUTE Methylprednisolone 125 MG ONCE ONE 07/05 0030 DC 07/05 IV 07/05 0031 0046 Nicotine 7 MG DAILY 07/05 1849 AC TOP Omeprazole 20 MG DAILY 07/05 0900 AC 07/05 PO 1111 Sodium Chloride 1,000 ML BOLUS ONE 07/05 0030 DC 07/05 IV 07/05 0129 0106 Review of Systems Comments 18 pt ros reviewed pertinent positives and negatives in the HPI otherwise negative Past History Travel History Traveled to [place] past 21 day No Medical History Neurological: NONE EENT: NONE Cardiovascular: hypertension Respiratory: COPD Gastrointestinal: NONE Hepatic: NONE Renal: NONE Musculoskeletal: NONE Psychiatric: NONE Endocrine: hypothyroidism Blood Disorders: NONE Cancer(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 Home Services at Home: None Smoking Status: Current Everyday Smoker Exam & Diagnostic Data Last 24 Hrs of Vital Signs/I&O Vital Signs Date Time Temp Pulse Resp B/P B/P Pulse O2 O2 Flow FiO2 Mean Ox Delivery Rate 07/05 1546 98.4 87 24 162/92 95 07/05 1500 95 Room Air 07/05 1500 98.6 88 22 158/88 95 Room Air 07/05 1111 100 148/65 07/05 1111 100 148/65 07/05 0829 97.2 100 18 148/65 93 Room Air 07/05 0700 97.2 100 18 148/65 93 Room Air Room Air 07/05 0541 96.0 104 20 142/65 94 Room Air 07/05 0511 94 07/05 0449 96.8 103 28 178/82 94 Room Air 07/05 0215 93 07/05 0120 Room Air 07/05 0100 98.0 97 22 178/74 95 Room Air 07/05 0055 99 Aerosol 9L Mask 07/05 0045 95 07/04 2028 96.9 87 18 123/68 95 Room Air Intake & Output 07/05 1600 07/05 0800 07/05 0000 Intake Total 1000 Output Total Balance 1000 Intake, IV 1000 Patient 109 lb Weight Weight Bed scale Measurement Method Physical Exam Other Physical Findings: [id number] heent-room air cvs-s1,s2, systolic murmur lungs-b/l scattered rhonchi primarily in the lower lung syed abd-soft,bs+ ext-edema Last 48 Hrs of Labs/Fantasma: Laboratory Tests 07/05/18 0540: Anion Gap 9, Estimated GFR > 60, BUN/Creatinine Ratio 15.7, Calcium 9.9, Magnesium 1.7, Troponin I < 0.01, TSH 1.260, Free T4 1.65, Total T3 1.02 07/04/182054: Anion Gap 7, Estimated GFR > 60, BUN/Creatinine Ratio 14.3, Glucose 106 H, Calcium 10.7 H, Magnesium 1.9, Total Bilirubin 0.5, AST 25, ALT 26, Alkaline Phosphatase 113, Troponin I < 0.01, Total Protein 7.3, Albumin 4.1, Globulin 3.2 , Albumin/Globulin Ratio 1.3, CBC w Diff NO MAN DIFF REQ, RBC 4.29, MCV 93.7, MCH 31.2 H, MCHC 33.3, RDW 13.7, MPV 6.7 L, Gran % 57.5, Lymphocytes % 30.1, Monocytes % 8.8, Eosinophils % 3.2, Basophils % 0.4, Absolute Granulocytes 4.5, Absolute Lymphocytes 2.4, Absolute Monocytes 0.7 H, Absolute Eosinophils 0.3, Absolute Basophils 0 Assessment/Plan Impression/Plan: Impression 77 year old woman * Dyspnea - differential diagnosis is broad, she does not appear to be in overt heart failure, her COPD is not optimally controlled - PFT's are consistent with emphysema with a significant bronchodilator response. Bibasilar rhonchi present a concern for ILD/pulmonary fibrosis * tobacco dependence Plan -obtain non-contrast CT chest -TRC/Nebs -would not begin any maintance inhalers at this time, await CT -f/u cardiology recommendations -nicotine patch -smoking cessation - counseled DVT prophylaxis at all times Consult Acknowledgment - Thank you for your consult request.
[2018-07-05 22:09] VITALS: BP 168/80
--- NOTE | 2018-07-05 23:39 | CT SCAN REPORT ---
EXAMINATION: CT CHEST WITHOUT CONTRAST CLINICAL INFORMATION: Dyspnea. Emphysema. COMPARISON: CT chest 03/12/2018. Chest x-ray 07/04/2018 TECHNIQUE: Multidetector volumetric CT imaging of the chest was done. Axial MIP volume rendering provided. Sagittal and coronal reformatted images were obtained. DLP: 271.79 mGy-cm FINDINGS: LUNGS: There is marked emphysematous changes of the lung. There is no infiltrate. The central bronchial airways are open. MEDIASTINUM: There is atherosclerotic vascular calcifications of aorta. Thoracic aorta is tortuous. The aorta is aneurysmal in the upper abdomen just below the diaphragm measuring 3.7 cm AP. This is unchanged since CT of 03/12/2018. There is a small pericardial effusion measuring 8 mm in diameter There are slightly enlarged lymph nodes in the subcarina measuring up to a diameter of 1.3 cm. There is a 1 cm lymph node at the pretracheal retrovascular space at the level the chip and subcentimeter shotty lymph nodes at the AP window. There are vascular calcifications of coronary arteries. There is a moderate-sized hiatal hernia. PLEURA: There is no pleural effusion. No pleural mass or thickening. AXILLA: No lymphadenopathy. UPPER ABDOMEN: 3.7 cm AP dimension aneurysm of the proximal aorta. Visualized portions of liver, spleen, kidneys and pancreas and gallbladder are unremarkable. OSSEOUS STRUCTURES: There is kyphosis of dorsal spine. There is multilevel compression deformity of multiple thoracic vertebral bodies. There is degenerative spondylosis of the bodies. IMPRESSION: 1. Emphysematous change of lung. 2. Moderate-sized hiatal hernia. 3. 3.7 cm aneurysm of the upper abdominal aorta. This is unchanged since CT 03/12/2018 There is extensive atherosclerotic vascular calcifications of the wall of aorta. 4. Borderline mediastinal lymphadenopathy. 5. Small pericardial effusion.
[2018-07-06 06:55] VITALS: BP 150/70
--- NOTE | 2018-07-06 07:13 | PN- Housestaff ---
Emelia GARZA,Rosalinda 07/06/18 0713: Subjective Follow-up For: COPD exacerbation Complaints: no complaints Tele-Events Since Last Visit: NSR Subjective: Patient seen and examined at bedside. She was lying in bed comfortably. No acute distress. She is not on any home oxygen. She denies nausea, vomiting, abdominal pain, difficulty in breathing. She is able to converse freely. Review of Systems Constitutional: Reports: no symptoms. Objective Last 24 Hrs of Vital Signs/I&O Vital Signs Date Time Temp Pulse Resp B/P B/P Pulse O2 O2 Flow FiO2 Mean Ox Delivery Rate 07/06 0845 85 152/64 07/06 0845 85 152/64 07/06 0655 98.0 68 18 150/70 95 07/06 0000 Room Air Room Air 07/05 2309 Room Air 07/05 2209 98.5 96 19 168/80 93 07/05 1546 98.4 87 24 162/92 95 Intake & Output 07/06 1600 07/06 0800 07/06 0000 Intake Total 50 Output Total Balance 50 Intake, Oral 50 Patient 108 lb Weight Physical Exam General Appearance: Alert Cardiovascular: Regular Rate, Normal S1, Normal S2, No Murmurs Lungs: LEFT LUNG BASE WHEEZE + Abdomen: Soft Extremities: KHYPHOSCOLIOSIS Current Medications: Current Medications Sig/Arik Start time Last Medication Dose Route Stop Time Status Admin Acetaminophen 650 MG Q6P PRN 07/05 0445 AC 07/05 PO 1628 Albuterol Sulfate 3 ML Q4P PRN 07/05 2315 AC 07/06 INH 1211 Albuterol Sulfate 3 ML Q6 07/05 0600 DC INH Amlodipine Besylate 5 MG DAILY 07/05 0900 AC 07/06 PO 0845 Atorvastatin Calcium 5 MG 1700 07/05 1700 AC 07/05 PO 1848 Furosemide 20 MG DAILY 07/06 09 AC 07/06 IV 0845 Guaifenesin 600 MG Q12 07/06 09 AC 07/06 PO 1026 Heparin Sodium 5,000 UNIT Q8 07/05 0600 AC 07/05 (Porcine) SC 1628 Ipratropium [place] 2.5 ML Q6-PRN PRN 07/05 0445 AC INH Levothyroxine Sodium 0.05 MG DAILY AC 07/05 0700 AC 07/06 PO 0537 Lidocaine 1 PAT Q24H PRN 07/06 1315 AC EXT Lidocaine 1 PAT Q24H PRN 07/05 0445 DC EXT Lisinopril 20 MG DAILY 07/05 0900 AC 07/06 PO 0845 Magnesium Oxide 0 .STK-MED ONE 07/05 1633 DC PO Magnesium Oxide 400 MG ONE ONE 07/05 1615 DC 07/05 PO 07/05 1616 1630 Nicotine 7 MG DAILY 07/05 1849 AC TOP Omeprazole 20 MG DAILY 07/05 0900 AC 07/06 PO 0845 Prednisone 40 MG DAILY 07/06 1100 AC 07/06 PO 1154 Last 24 Hrs of Lab/Fantasma Results Last 24 Hrs of Labs/Mics: Laboratory Tests 07/06/18 0650: Anion Gap 8, Estimated GFR > 60, BUN/Creatinine Ratio 18.8, CBC w Diff NO MAN DIFF REQ, RBC 3.82 L, MCV 93.0, MCH 31.7 H, MCHC 34.0, RDW 13.9, MPV 7.5, Gran % 72.7, Lymphocytes % 16.6 L, Monocytes % 10.3 H, Eosinophils % 0.3, Basophils % 0.1, Absolute Granulocytes 7.2 H, Absolute Lymphocytes 1.7, Absolute Monocytes 1.0 H, Absolute Eosinophils 0, Absolute Basophils 0 Assessment/Plan Assessment: 77 year old female with history of COPD not on O2 but active cigarette use, mitral regurgitation, AAA, presents to the ED with increased shortness of breath. Assessment and plan 1. Shortness of breath can be secondary due to COPD exacerbation. Initial thought was mitral valve prolapse/hiatal hernia worsening. Patient on examination has wheeze She is responding well to nebulization and today prednisone 40 mg 5 was started. She was seen by cardiology and an echocardiogram was taken which showed stable mitral valve prolapse. Her shortness of breath looks most unlikely cardiac in origin. 2. Patient was also seen by pulmonology was suggested Ventolin and albuterol nebulization along with her home dose of albuterol/ipratropium. 3. Patient will follow up with cardiology/pulmonology and get an outpatient pulmonary function test done. Plan-patient is a possible discharge tomorrow Problem List: 1. COPD exacerbation Pain Ratin Pain Location: NONE Pain Goal: Remain pain free Pain Plan: TYLENOL Tomorrow's Labs & Rationales: Aleja Mandujano MD 07/06/18 1302: Attending MD Review Statement Attending Statement Attending MD Statement: examined this patient, discuss w/resident/PA/DREDGING INSPECTOR, agreed w/resident/PA/DREDGING INSPECTOR, reviewed EMR data (avail) Attending Assessment/Plan: 77F PMH HTN, HLD, chronic leg swelling bilaterally, abdominal aortic exam of 4.3 cm, kyphosis, mild COPD, active smoker admitted with dyspnea at rest in the setting of COPD exacerbation. Patient feels better today than yesterday. She was having trouble moving air yesterday, but today she is able to take breaths. She still has significant wheezing and is coughing up thick white sputum. She has to pause during long sentences. Her oxygen saturation is stable. 1. COPD Exacerbation 2. Acute bronchitis Plan - Discontinue telemetry - Continue Prednisone - Nebulizer treatments - Sputum culture - Continue home medications - DVT Ppx - Anticipated discharge tomorrow on Prednisone with pulmonary follow up
--- NOTE | 2018-07-06 07:19 | Discharge Summary ---
Visit Information Visit Dates Admission Date: 07/05/18 Discharge Date: 07/07/18 Hospital Course Course Attending Physician: Olena GARZA,[facility] Primary Care Physician: Sena Araya APRN Consulting Request: Consulting Specialty: Critical Care Hospital Course: 77 year old female with history of COPD not on O2 but active cigarette use, mitral regurgitation, AAA, presents to the ED with increased shortness of breath. The patient was at home walking with her daughter when she suddenly felt very short of breath and needed to sit down. Sitting down did not allow her to catch her breath and she was brought inside to lay down before being brought to the [place] ED. Although she would experience dyspnea after walking short distances at home prior to today, the patient now can only walk a few feet before becoming very short of breath. She denied chest pain, syncope or dizziness, headache, fever, chills. She did report associated palpitations and a worsening cough productive of whitish sputum for the past few days, as well as chronic edema of her lower extremities bilaterally. The patient currently smokes 5 cigarettes per day, and she has smoked all of her life, occasionally more and sometimes less, but regardless a very extensive smoking history. She denied alcohol or illicit drug use. --- 1. COPD exacerbation 2. Active smoker 3. Abdominal aortic aneurysm-chronic 4. Mild mitral insufficiency with mild to moderate aortic insufficiency 5. Hypertension Patient came in with shortness of breath which was initially thought secondary due to progressive mitral insufficiency but given her clinical presentation it looked more of COPD exacerbation. Off note patient is an active smoker. Patient was initially treated with Lasix but then was stopped and was seen by airport clerk who started her on prednisone 405 days. Patient breathing improved. Patient advised to quit smoking. Patient was also seen by screening representative who suggested to continue the current management and advice ultrasound of the abdomen to follow for abdominal aortic aneurysm. On echo but his [address] it is 3.7 mm Patient will be sent home with albuterol nebulizer machine. Patient also will be sent home with nicotine patch to help with quit smoking and lidocaine patch to help with the back pain. Allergies: Coded Allergies: codeine (Intermediate, LIGHTHEADED 03/12/18) Significant Procedures: Echocardiogram 1. This was a technically difficult examination. 2. Aortic sclerosis is present with mild aortic insufficiency. 3. Mitral leaflet thickening is present with mild to moderate anular calcification and mild mitral insufficiency with mild left atrial enlargement. 4. A small pericardial effusion is present which is hemodynamically insignificant 5. The left ventricular chamber size is normal with an ejection fraction of greater than 75%. 6. Mild tricuspid insufficiency is preseet with no evidence of pulmonary hypertension. 7. Mild LV diastolic dysfunction is present 8. Lipomatous atrial septal hypertrophy is present. 9. Aneurysmal dilatation of the abdominal aorta is present measuring 39 x 39 mm in diameter. Formal evaluation is suggested. CAT scan of the abdomen and pelvis 1. Emphysematous change of lung. 2. Moderate-sized hiatal hernia. 3. 3.7 cm aneurysm of the upper abdominal aorta. This is unchanged since CT 03/12/2018 There is extensive atherosclerotic vascular calcifications of the wall of aorta. 4. Borderline mediastinal lymphadenopathy. 5. Small pericardial effusion. Disposition Summary Disposition Principal Diagnosis: COPD except Additional Diagnosis: Non- Discharge Disposition: home or self care Discharge Instructions General Discharge Information Code Status: Full Code Patient's Diet: Heart healthy diet Patient's Activity: As tolerated Follow-Up Instructions/Appts: Follow with primary care/pulmonology/ Medications at Discharge Discharge Medications: Continue taking these medications: Prednisolone (Prednisolone) 15 MG/5 ML SOLUTION 10 Milliliters ORAL QDAY Qty = 50 Comments: NOT GIVEN IN HOSPITAL. Albuterol Sulfate (Ventolin Hfa) 90 MCG HFA.AER.AD 2 Puff Inhale through mouth EVERY 4-6 HOURS NEEDED as needed for COPD Comments: Last Taken: 07/07/18 Time: 09:13 AM Levothyroxine Sodium (Levothyroxine Sodium) 50 MCG TABLET 1 Tablet ORAL DAILY Comments: Last Taken: 07/07/18 Time: 06:15 AM Benazepril HCl (Benazepril HCl) 20 MG TABLET 1 Tablet ORAL DAILY Comments: Last Taken: 07/07/18 Time: 08:35 AM GIVEN LISINOPRIL IN HOSPITAL. Simvastatin (Simvastatin*) 10 MG TABLET 1 Tablet ORAL Every night Comments: Last Taken: 07/06/18 Time: 4:30 PM Amlodipine Besylate (Amlodipine Besylate) 5 MG TABLET 1 Tablet ORAL DAILY Comments: Last Taken: 07/07/18 Time: 08:35 AM Omeprazole (Omeprazole) 20 MG CAPSULE.DR 1 Capsule ORAL DAILY Comments: Last Taken: 07/07/18 Time: 08:35 AM Start taking the following new medications: Prednisone (Prednisone) 10 MG TABLET 1 Tablet ORAL DAILY Qty = 3 No Refills Instructions: . Comments: Last Taken: 07/07/18 Time: 08:35 AM Lidocaine (Lidoderm) 5 % ADH..PATCH 1 Patch ON SKIN Q24H as needed for PAIN SCALE 4-6 (MODERATE) Qty = 30 No Refills Instructions: . Comments: NOT GIVEN IN HOSPITAL. Albuterol Sulfate (Albuterol Sulfate) 2.5 MG/3 ML (0.083 %) VIAL.NEB 1 Vial Inhale Solution EVERY 4 HOURS NEEDED as needed for COPD Qty = 30 No Refills Instructions: . Comments: Last Taken: 07/07/18 Time: 09:13 AM Nicotine (Nicotine Patch) 7 MG/24 HOUR PATCH.TD24 7 Milligram On the skin DAILY Qty = 30 No Refills Copies To: Sena Araya APRN; Ariel GARZA,Richy; Martha GARZA,Clay
[2018-07-06 07:59] LABS: ABSOLUTE BASOPHIL COUNT 0 /CUMM (0.0-0.2); ABSOLUTE EOSINOPHIL COUNT 0 /CUMM (0.0-0.7); ABSOLUTE GRANULOCYTE CT 7.2 /CUMM (1.4-6.5); ABSOLUTE LYMPH COUNT 1.7 /CUMM (1.2-3.4); BASOPHIL % 0.1 % (0.0-2.0); EOSINOPHIL % 0.3 % (0-5); GRANULOCYTE % 72.7 % (42.2-75.2); HEMATOCRIT 35.6 % (37-47); MEAN CORPUSCULAR HGB 31.7 PG (27.0-31.0); MEAN PLATELET VOLUME 7.5 FL (7.4-10.4); PLATELET COUNT 333 /CUMM (130-400); RBC DISTRIBUTION WIDTH 13.9 % (11.5-14.5); RED BLOOD CELL CT 3.82 /CUMM (4.20-5.40); WHITE BLOOD CELL COUNT 9.9 /CUMM (4.8-10.8)
--- NOTE | 2018-07-06 08:22 | PN- Student ---
Subjective Subjective: Patient was seen and examined this am. Patient is afebrile. Patient reports that shortness of breath feels slightly improved, but notes that being woken up abruptly while in the hospital triggers the shortness of breath. Denies shortness of breath at rest, but is present on mild exertion. Pt denies cough overnight. Review of Systems Review of Systems Constitutional: Denies: chills, diaphoresis, fever. Cardiovascular: Reports: peripheral edema (chronic left LE swelling). Denies: chest pain, orthopena, palpitations, syncope. Respiratory: Reports: cough, short of breath, sputum production. Denies: hemoptysis, orthopnea. GI: Denies: abdominal pain, constipation, diarrhea, nausea, vomiting. Genitourinary: Reports: nocturia. Denies: dysuria. Neurological/Psychological: Denies: headache. Objective Objective: Current Medications Sig/Arik Start time Last Medication Dose Stop Time Status Admin Acetaminophen 650 MG Q6P PRN 07/05 0445 AC 07/05 (Tylenol) 1628 Albuterol Sulfate 3 ML Q4P PRN 07/05 2315 AC 07/06 (Proventil) 1211 Amlodipine Besylate 5 MG DAILY 07/05 0900 AC 07/06 (Norvasc) 0845 Atorvastatin Calcium 5 MG 1700 07/05 1700 AC 07/05 (Lipitor) 1848 Furosemide 20 MG DAILY 07/06 0900 AC 07/06 (Lasix) 0845 Guaifenesin 600 MG Q12 07/06 0900 AC 07/06 (Mucinex) 1026 Heparin Sodium 5,000 UNIT Q8 07/05 0600 AC 07/05 (Porcine) 1628 Ipratropium [place] 2.5 ML Q6-PRN PRN 07/05 0445 AC (Atrovent) Levothyroxine Sodium 0.05 MG DAILY AC 07/05 0700 AC 07/06 (Synthroid) 0537 Lidocaine 1 PAT Q24H PRN 07/06 1315 AC (Lidoderm) Lisinopril 20 MG DAILY 07/05 0900 AC 07/06 (Prinivil) 0845 Nicotine 7 MG DAILY 07/05 1849 AC (Nicotine Cq) Omeprazole 20 MG DAILY 07/05 0900 AC 07/06 (Prilosec) 0845 Prednisone 40 MG DAILY 07/06 1100 AC 07/06 1154 Results Results: Laboratory Tests 07/06/18 0650: Anion Gap 8, Estimated GFR > 60, BUN/Creatinine Ratio 18.8, CBC w Diff NO MAN DIFF REQ, RBC 3.82 L, MCV 93.0, MCH 31.7 H, MCHC 34.0, RDW 13.9, MPV 7.5, Gran % 72.7, Lymphocytes % 16.6 L, Monocytes % 10.3 H, Eosinophils % 0.3, Basophils % 0.1, Absolute Granulocytes 7.2 H, Absolute Lymphocytes 1.7, Absolute Monocytes 1.0 H, Absolute Eosinophils 0, Absolute Basophils 0 07/05/18 0540: Anion Gap 9, Estimated GFR > 60, BUN/Creatinine Ratio 15.7, Calcium 9.9, Magnesium 1.7, Troponin I < 0.01, TSH 1.260, Free T4 1.65, Total T3 1.02 07/04/18 2055: Anion Gap 7, Estimated GFR > 60, BUN/Creatinine Ratio 14.3, Glucose 106 H, Calcium 10.7 H, Magnesium 1.9, Total Bilirubin 0.5, AST 25, ALT 26, Alkaline Phosphatase 113, Troponin I < 0.01, Total Protein 7.3, Albumin 4.1, Globulin 3.2 , Albumin/Globulin Ratio 1.3, CBC w Diff NO MAN DIFF REQ, RBC 4.29, MCV 93.7, MCH 31.2 H, MCHC 33.3, RDW 13.7, MPV 6.7 L, Gran % 57.5, Lymphocytes % 30.1, Monocytes % 8.8, Eosinophils % 3.2, Basophils % 0.4, Absolute Granulocytes 4.5, Absolute Lymphocytes 2.4, Absolute Monocytes 0.7 H, Absolute Eosinophils 0.3, Absolute Basophils 0 PHYSICAL EXAM Last 24hrs of Vital Signs Vital Signs Date Time Temp Pulse Resp B/P B/P Pulse O2 O2 Flow FiO2 Mean Ox Delivery Rate 07/06 0845 85 152/64 07/06 0845 85 152/64 07/06 0655 98.0 68 18 150/70 95 07/06 0000 Room Air Room Air 07/05 2309 Room Air 07/05 2209 98.5 96 19 168/80 93 07/05 1546 98.4 87 24 162/92 95 07/05 1500 95 Room Air 07/05 1500 98.6 88 22 158/88 95 Room Air Physical Exam General Appearance Alert, Cooperative, No Acute Distress HEENT Atraumatic Cardiovascular Regular Rate, Normal S1, Normal S2 (hoosystolic murmur) Lungs bilateral wheezing Abdomen Normal Bowel Sounds, Soft, No Tenderness, left abdominal bruit Extremities Normal Pulses (1+ L leg pitting edema) Assessment/Plan Assessment: Ashlyn Castro is a 77yo F with a PMH of COPD not on home oxygen, HTN, HLD, hypothyroidism, mitral regurgitation, AAA, who presented to the ED with shortness of breath on exertion and at rest. Patient reports feeling short of breath when leaving her apartment to the elevator to smoke and was unable to catch her breath. Pt reports that she is usually short of breath with walking short distances and usually recovers with rest. She reports waking up 3-4x at night to urinate and feels short of breath at these times, but recovers with sitting down. Pt reports that shortness of breath is improving, but continues to note shortness of breath with mild exertion. She denies chest pain; reports palpitations with exertion, leg swelling, and productive cough of white sputum. Denies abdominal pain, nausea, vomiting, diarrhea, constipation, dysuria, hematuria. On PE, there was bilateral wheezing throughout the middle and lower lobes, holosystolic murmur, left LE swelling, and kyphosis. Labs show hyponatremia. CXR There is a large hiatal hernia. No change of the cardiac and mediastinal contours. Thoracic aorta is uncoiled with calcifications of the wall. There is stable mild increased interstitial lung markings. There is no acute infiltrate. There is no pulmonary vascular congestion. There is no pleural effusion or pneumothorax. There is a kyphosis of dorsal spine with multilevel compression deformities of vertebrae. Compared to the prior chest x-ray there has been no change IMPRESSION: No acute abnormality of the chest. CT CHEST WITHOUT CONTRAST COMPARISON: CT chest 03/12/2018. Chest x-ray 07/04/2018 TECHNIQUE: Multidetector volumetric CT imaging of the chest was done. Axial MIP volume rendering provided. Sagittal and coronal reformatted images were obtained. DLP: 271.79 mGy-cm FINDINGS: LUNGS: There is marked emphysematous changes of the lung. There is no infiltrate. The central bronchial airways are open. MEDIASTINUM: There is atherosclerotic vascular calcifications of aorta. Thoracic aorta is tortuous. The aorta is aneurysmal in the upper abdomen just below the diaphragm measuring 3.7 cm AP. This is unchanged since CT of 03/12/2018. There is a small pericardial effusion measuring 8 mm in diameter There are slightly enlarged lymph nodes in the subcarina measuring up to a diameter of 1.3 cm. There is a 1 cm lymph node at the pretracheal retrovascular space at the level the chip and subcentimeter shotty lymph nodes at the AP window. There are vascular calcifications of coronary arteries. There is a moderate-sized hiatal hernia. PLEURA: There is no pleural effusion. No pleural mass or thickening. AXILLA: No lymphadenopathy. UPPER ABDOMEN: 3.7 cm AP dimension aneurysm of the proximal aorta. Visualized portions of liver, spleen, kidneys and pancreas and gallbladder are unremarkable. OSSEOUS STRUCTURES: There is kyphosis of dorsal spine. There is multilevel compression deformity of multiple thoracic vertebral bodies. There is degenerative spondylosis of the bodies. IMPRESSION: 1. Emphysematous change of lung. 2. Moderate-sized hiatal hernia. 3. 3.7 cm aneurysm of the upper abdominal aorta. This is unchanged since CT 03/12/2018 There is extensive atherosclerotic vascular calcifications of the wall of aorta. 4. Borderline mediastinal lymphadenopathy. 5. Small pericardial effusion. Plan: Plan: 1. Dypsnea - secondary to ?worsening mitral regurgitation, ?COPD, ?hiatal hernia, ?kyphosis - following automotive brake specialist recommendation, continue low dose lasix - f/u cardiology recommendations - f/u echocardiogram 2. COPD - monitor vitals, current O2 sat 95 - continue with albuterol q4h and ipratropium PRN - patient already received 1 time dose of lasix and solumedrol - add mucinex for wheezing - following fish roe technician recommendation, prednisone 40mg x5days; add maintenance inhalers on outpatient basis 3. Hyponatremia - monitor labs: Na currently 130, previously 133 4. HTN - monitor vitals, currently 152/64, previous SBP 140-160s, DBP 60-90s - continue home meds: amlodipine, lisinopril 5. Continue home meds: atorvastatin, omeprazole, levothyroxine
--- NOTE | 2018-07-06 08:48 | Patient Discharge Instructions ---
Discharge Instructions General Discharge Information You were seen/treated for: Difficulty in breathing secondary due to possible COPD Watch for these problems: In case of shortness of breath/chest pain/palpitations/weakness go to the nearest emergency room Special Instructions: Follow-up with Dr. George/primary care physician/Dr Thomas within 1-2 weeks of discharge. Please follow-up with ultrasound of the abdomen to look for abdominal aortic aneurysm and follow-up with primary care physician/well driller. Diet Recommended Diet: Heart Healthy Activity Activity Self Limited: Yes Acute Coronary Syndrome Inclusion Criteria At DC or during hospital stay patient has or had the following: ACS DIAGNOSIS No Discharge Core Measures Meds if any: Prescribed or Continued at Discharge Meds if any: NOT Prescribed or Continued at Discharge Congestive Heart Failure Inclusion Criteria At DC or during hospital stay patient has or had the following: CHF DIAGNOSIS No Discharge Core Measures Meds if any: Prescribed or Continued at Discharge Meds if any: NOT Prescribed or Continued at Discharge Cerebrovascular accident Inclusion Criteria At DC or during hospital stay patient has or had the following: CVA/TIA Diagnosis No Discharge Core Measures Meds if any: Prescribed or Continued at Discharge Meds if any: NOT Prescribed or Continued at Discharge Venous thromboembolism Inclusion Criteria VTE Diagnosis No VTE Type NONE VTE Confirmed by (Test) NONE Discharge Core Measures - Per Current guidelines, there needs to be overlap - treatment for the first 5 days of Warfarin therapy. - If discharged on Warfarin prior to 5 days of - overlap therapy, the patient will need to be - assessed for post discharge needs including - *Post discharge parental anticoagulation - *Warfarin and/or parental anticoagulation education - *Follow up date to check INR post discharge At least 5 days overlap therapy as Inpatient No Meds if any: Prescribed or Continued at Discharge Note: Overlap Therapy is Warfarin and Anticoagulant Meds if any: NOT Prescribed or Continued at Discharge
[2018-07-06] MEDS ORDERED: LIDODERM1 EACH EXT (08:53)
[2018-07-06] MEDS ORDERED: ALBUTEROL1.25 MG/1 INH/SOL ×2 (10:23→14:01)
--- NOTE | 2018-07-06 10:56 | PN- Cardiology ---
Subjective Subjective: Stable CV status; respiratory status improved Objective Vital Signs and I&Os Vital Signs Date Time Temp Pulse Resp B/P B/P Pulse O2 O2 Flow FiO2 Mean Ox Delivery Rate 07/06 0845 85 152/64 07/06 0845 85 152/64 07/06 0655 98.0 68 18 150/70 95 07/06 0000 Room Air Room Air 07/05 2309 Room Air 07/05 2209 98.5 96 19 168/80 93 07/05 1546 98.4 87 24 162/92 95 07/05 1500 95 Room Air 07/05 1500 98.6 88 22 158/88 95 Room Air 07/05 1111 100 148/65 07/05 1111 100 148/65 Intake & Output 07/06 1600 07/06 0800 07/06 0000 07/05 1600 07/05 0800 07/05 0000 Intake Total 50 1000 Output Total Balance 50 1000 Intake, IV 1000 Intake, Oral 50 Patient 108 lb 109 lb Weight Weight Bed scale Measurement Method Current Medications: Current Medications Sig/Arik Start time Last Medication Dose Route Stop Time Status Admin Acetaminophen 650 MG Q6P PRN 07/05 0445 AC 07/05 PO 1628 Albuterol Sulfate 3 ML Q4P PRN 07/05 2315 AC INH Albuterol Sulfate 3 ML Q6 07/05 0600 AC INH Amlodipine Besylate 5 MG DAILY 07/05 0900 AC 07/06 PO 0845 Atorvastatin Calcium 5 MG 1700 07/05 1700 AC 07/05 PO 1848 Furosemide 20 MG DAILY 07/06 0900 AC 07/06 IV 0845 Guaifenesin 600 MG Q12 07/06 0900 AC 07/06 PO 1026 Heparin Sodium 5,000 UNIT Q8 07/05 0600 AC 07/05 (Porcine) SC 1628 Ipratropium [place] 2.5 ML Q6-PRN PRN 07/05 0445 AC INH Levothyroxine Sodium 0.05 MG DAILY AC 07/05 0700 AC 07/06 PO 0537 Lidocaine 1 PAT Q24H PRN 07/05 0445 AC EXT Lisinopril 20 MG DAILY 07/05 0900 AC 07/06 PO 0845 Magnesium Oxide 0 .STK-MED ONE 07/05 1633 DC PO Magnesium Oxide 400 MG ONE ONE 07/05 1615 DC 07/05 PO 07/05 1616 1630 Nicotine 7 MG DAILY 07/05 1849 AC TOP Omeprazole 20 MG DAILY 07/05 0900 AC 07/06 PO 0845 Prednisone 40 MG DAILY 07/06 1100 AC PO Results Last 48 Hrs of Labs/Mics: Laboratory Tests 07/06/18 0650: Anion Gap 8, Estimated GFR > 60, BUN/Creatinine Ratio 18.8, CBC w Diff NO MAN DIFF REQ, RBC 3.82 L, MCV 93.0, MCH 31.7 H, MCHC 34.0, RDW 13.9, MPV 7.5, Gran % 72.7, Lymphocytes % 16.6 L, Monocytes % 10.3 H, Eosinophils % 0.3, Basophils % 0.1, Absolute Granulocytes 7.2 H, Absolute Lymphocytes 1.7, Absolute Monocytes 1.0 H, Absolute Eosinophils 0, Absolute Basophils 0 07/05/18 0540: Anion Gap 9, Estimated GFR > 60, BUN/Creatinine Ratio 15.7, Calcium 9.9, Magnesium 1.7, Troponin I < 0.01, TSH 1.260, Free T4 1.65, Total T3 1.02 07/04/18 2055: Anion Gap 7, Estimated GFR > 60, BUN/Creatinine Ratio 14.3, Glucose 106 H, Calcium 10.7 H, Magnesium 1.9, Total Bilirubin 0.5, AST 25, ALT 26, Alkaline Phosphatase 113, Troponin I < 0.01, Total Protein 7.3, Albumin 4.1, Globulin 3.2 , Albumin/Globulin Ratio 1.3, CBC w Diff NO MAN DIFF REQ, RBC 4.29, MCV 93.7, MCH 31.2 H, MCHC 33.3, RDW 13.7, MPV 6.7 L, Gran % 57.5, Lymphocytes % 30.1, Monocytes % 8.8, Eosinophils % 3.2, Basophils % 0.4, Absolute Granulocytes 4.5, Absolute Lymphocytes 2.4, Absolute Monocytes 0.7 H, Absolute Eosinophils 0.3, Absolute Basophils 0 Assessment/Plan Assessment/Plan Assessment: 1. Worsening shortness of breath 2. History of COPD 3. Hyponatremia 4. Hypertension 5. Bilateral lower extremity edema 6. History of abdominal aortic aneurysm 7. Ongoing tobacco use 8. Valvular heart disease-recent echocardiogram at Dr. Thomas's office performed in January 2018 showed mild mitral insufficiency and mild to moderate aortic insufficiency. 9. AAA - [address]; 39 mm on echocardiogram Recommendations: -Continue respiratory treatments -Telemetry monitoring -Monitor intakes outputs and daily weights -Continue low-dose Lasix for now -At the moment, I do not see any evidence of overt heart failure. There is no significant CHF noted on the chest x-ray. No evidence of pleural effusions noted. -Repeat echocardiogram shows only mild mitral and aortic insufficiency -Chest CT noted -Consider formal pulmonary input Continue telemetry? Yes
--- NOTE | 2018-07-06 11:38 | PN- Pulmonary ---
Subjective HPI/Critical Care Issues: pt seen and examined feeling better wheezing benefits from nebulized therapy no n/v/d/c, no cp, no echeverria, no fevers Objective Current Medications: Current Medications Sig/Arik Start time Last Medication Dose Route Stop Time Status Admin Acetaminophen 650 MG Q6P PRN 07/05 0445 AC 07/05 PO 1628 Albuterol Sulfate 3 ML Q4P PRN 07/05 2315 AC INH Albuterol Sulfate 3 ML Q6 07/05 0600 AC INH Amlodipine Besylate 5 MG DAILY 07/05 0900 AC 07/06 PO 0845 Atorvastatin Calcium 5 MG 1700 07/05 1700 AC 07/05 PO 1848 Furosemide 20 MG DAILY 07/06 0900 AC 07/06 IV 0845 Guaifenesin 600 MG Q12 07/06 0900 AC 07/06 PO 1026 Heparin Sodium 5,000 UNIT Q8 07/05 0600 AC 07/05 (Porcine) SC 1628 Ipratropium [place] 2.5 ML Q6-PRN PRN 07/05 0445 AC INH Levothyroxine Sodium 0.05 MG DAILY AC 07/05 0700 AC 07/06 PO 0537 Lidocaine 1 PAT Q24H PRN 07/05 0445 AC EXT Lisinopril 20 MG DAILY 07/05 0900 AC 07/06 PO 0845 Magnesium Oxide 0 .STK-MED ONE 07/05 1633 DC PO Magnesium Oxide 400 MG ONE ONE 07/05 1615 DC 07/05 PO 07/05 1616 1630 Nicotine 7 MG DAILY 07/05 1849 AC TOP Omeprazole 20 MG DAILY 07/05 0900 AC 07/06 PO 0845 Prednisone 40 MG DAILY 07/06 1100 AC PO Vital Signs & I&O Last 24 Hrs of Vitals and I&O: Vital Signs Date Time Temp Pulse Resp B/P B/P Pulse O2 O2 Flow FiO2 Mean Ox Delivery Rate 07/06 0845 85 152/64 07/06 0845 85 152/64 07/06 0655 98.0 68 18 150/70 95 07/06 0000 Room Air Room Air 07/05 2309 Room Air 07/05 2209 98.5 96 19 168/80 93 07/05 1546 98.4 87 24 162/92 95 07/05 1500 95 Room Air 07/05 1500 98.6 88 22 158/88 95 Room Air Intake & Output 07/06 1600 07/06 0800 07/06 0000 Intake Total 50 Output Total Balance 50 Intake, Oral 50 Patient 108 lb Weight Exam Other Physical Findings: [id number] heent-room air cvs-s1,s2, systolic murmur lungs-b/l scattered rhonchi primarily in the lower lung syed abd-soft,bs+ ext-edema Results Last 24 Hrs of Lab Results: Laboratory Tests 07/06/18 0650: Anion Gap 8, Estimated GFR > 60, BUN/Creatinine Ratio 18.8, CBC w Diff NO MAN DIFF REQ, RBC 3.82 L, MCV 93.0, MCH 31.7 H, MCHC 34.0, RDW 13.9, MPV 7.5, Gran % 72.7, Lymphocytes % 16.6 L, Monocytes % 10.3 H, Eosinophils % 0.3, Basophils % 0.1, Absolute Granulocytes 7.2 H, Absolute Lymphocytes 1.7, Absolute Monocytes 1.0 H, Absolute Eosinophils 0, Absolute Basophils 0 Impression/Plan Impression/Plan Impression/Plan: Impression 77 year old woman * Dyspnea - likely related to signficant emphysema, mild exacerbation * tobacco dependence * hiatal hernia Plan -prednisone 40mg x 5 days -outpatient PFTs -set up with ventolin and nebulized albuterol (with machine and all necessary supplies) for outpatient -TRC/Nebs -will add maintenance inhalers on an outpatient basis -f/u cardiology recommendations -nicotine patch -smoking cessation - counseled DVT prophylaxis at all times
[2018-07-06] MEDS ORDERED: PREDNISONE20 M1 PO (14:00)
[2018-07-06 15:02] VITALS: BP 124/64
[2018-07-06] MEDS ORDERED: VENTAVIS NEB (15:03)
[2018-07-06] MEDS ORDERED: ALBUTEROL2.5 MG/3 M INH/SOL (16:25)
[2018-07-06] MEDS ORDERED: PREDNISONE10 M2 PO (16:26)
--- NOTE | 2018-07-06 16:33 | ECHOCARDIOGRAM REPORT ---
ARNOL BLACKWOOD Age: 77 : 1940 Gender: F Exam Date: 07/05/2018 11:39 Exam Location: ER Ht (in): 57 Wt (lb): 105 BSA: 1.39 BP: 148 / 65 Ordering Physician: Leah Sepulveda MD Referring Physician: Leah Sepulveda MD Technologist: Joesph Denise ELENA Room Number: 12 Indications: Shortness of breath Rhythm: Sinus Technical Quality: Fair FINDINGS Left Ventricle Normal size left ventricle. No obvious regional wall motion abnormalities. Normal left ventricular ejection fraction estimated at 65-70%. Right Ventricle Normal right ventricular size and function. Right Atrium Normal right atrial size. Left Atrium Mild left atrial dilatation. Mitral Valve Mitral valve thickened. Moderate mitral annular calcification. Trace to mild mitral regurgitation. Aortic Valve Trileaflet aortic valve. Diffuse thickening (sclerosis) of the aortic valve cusps without reduced excursion. No aortic stenosis. Mild aortic regurgitation. Tricuspid Valve Tricuspid valve not well visualized, grossly normal. Mild tricuspid regurgitation. Pulmonic Valve Pulmonic valve not well visualized, grossly normal. Pericardium Small pericardial effusion. Great Vessels Normal size aortic root and proximal ascending aorta. CONCLUSIONS 1. This was a technically difficult examination. 2. Aortic sclerosis is present with mild aortic insufficiency. 3. Mitral leaflet thickening is present with mild to moderate anular calcification and mild mitral insufficiency with mild left atrial enlargement. 4. A small pericardial effusion is present which is hemodynamically insignificant 5. The left ventricular chamber size is normal with an ejection fraction of greater than 75%. 6. Mild tricuspid insufficiency is preseet with no evidence of pulmonary hypertension. 7. Mild LV diastolic dysfunction is present 8. Lipomatous atrial septal hypertrophy is present. 9. Aneurysmal dilatation of the abdominal aorta is present measuring 39 x 39 mm in diameter. Formal evaluation is suggested. Otf Maguire M.D. (Electronically Signed) Final Date: 06 July 2018 16:29 MEASUREMENTS (Male / Female) Normal Values 2D ECHO LV Diastolic Diameter PLAX 4.3 cm 4.2 - 5.9 / 3.9 - 5.3 cm LV Systolic Diameter PLAX 2.7 cm 2.1 - 4.0 cm LV Fractional Shortening PLAX 37.2 % 25 - 46 % LV Ejection Fraction 2D Teich 67.5 % IVS Diastolic Thickness 1.1 cm LVPW Diastolic Thickness 1.0 cm LV Relative Wall Thickness 0.5 LVOT Diameter 1.8 cm Aortic Root Diameter 2.8 cm LA Systolic Diameter LX 1.7 cm 3.0 - 4.0 / 2.7 - 3.8 cm LA Volume 22.0 cm 18 - 58 / 22 - 52 cm DOPPLER AV Peak Velocity 214.0 cm/s AV Peak Gradient 18.3 mmHg AV Mean Velocity 138.0 cm/s AV Mean Gradient 9.0 mmHg AV Velocity Time Integral 43.5 cm LVOT Peak Velocity 177.0 cm/s LVOT Peak Gradient 12.5 mmHg LVOT Mean Velocity 97.8 cm/s LVOT Mean Gradient 5.0 mmHg LVOT Velocity Time Integral 33.0 cm LVOT Stroke Volume 84.0 cm AV Area Cont Eq vti 1.9 cm AV Area Cont Eq pk 2.1 cm MV Peak Velocity 211.0 cm/s MV Peak Gradient 17.8 mmHg MV Mean Velocity 89.1 cm/s MV Mean Gradient 5.0 mmHg Mitral E Point Velocity 87.3 cm/s Mitral A Point Velocity 204.0 cm/s Mitral E to A Ratio 0.4 TR Peak Velocity 247.0 cm/s TR Peak Gradient 24.4 mmHg Right Atrial Pressure 5.0 mmHg Pulmonary Artery Systolic Pressure 29.4 mmHg Right Ventricular Systolic Pressure 29.4 mmHg PV Peak Velocity 145.0 cm/s PV Peak Gradient 8.4 mmHg PV Mean Velocity 100.0 cm/s PV Mean Gradient 5.0 mmHg PV Velocity Time Integral 31.3 cm
[2018-07-06 22:50] VITALS: BP 128/78
[2018-07-07 07:31] VITALS: BP 142/74
[2018-07-07 08:35] VITALS: BP 142/74
--- NOTE | 2018-07-07 08:41 | PN- Housestaff ---
Jade Villarreal 07/07/18 0841: Subjective Follow-up For: COPD exacerbation Subjective: Afebrile overnight. Patient is seen and examined this morning. Patient is awake and sitting comfortably at the side of her bed. Patient states she has been feeling short of breath and is currently receiving her nebulizer treatment. Patient denies any chest pain, abdominal pain, leg swelling, fevers, chills, and fatigue. Review of Systems Constitutional: Reports: see HPI. Objective Last 24 Hrs of Vital Signs/I&O Vital Signs Date Time Temp Pulse Resp B/P B/P Pulse O2 O2 Flow FiO2 Mean Ox Delivery Rate 07/07 0915 99 Room Air 07/07 0835 83 142/74 07/07 0835 83 142/74 07/07 0731 97.8 83 18 142/74 93 Room Air 07/07 0000 Room Air 07/06 2250 98.3 84 16 128/78 93 Room Air 07/06 1502 98.2 89 18 124/64 98 Intake & Output 07/07 1600 07/07 0800 07/07 0000 Intake Total 120 50 Output Total Balance 120 50 Intake, Oral 120 50 Patient 108 lb Weight Physical Exam General Appearance: Alert, Oriented X3, Cooperative, No Acute Distress Skin: No Rashes, No Breakdown Skin Temp/Moisture Exam: Warm/Dry HEENT: Atraumatic Neck: Supple, No JVD Cardiovascular: Regular Rate, Normal S1, Normal S2 Lungs: decreased breath sounds and faint rhonchi in left lung field Abdomen: Soft, No Tenderness Neurological: Normal Speech Extremities: No Edema, Normal Pulses Assessment/Plan Assessment: 77 year old female with history of COPD not on O2 but active cigarette use, mitral regurgitation, AAA, presents to the ED with increased shortness of breath. Assessment and plan 1. Shortness of breath can be secondary due to COPD exacerbation. Initial thought was mitral valve prolapse/hiatal hernia worsening. Patient on examination has wheeze She is responding well to nebulization and today prednisone 40 mg 5 was started. She was seen by cardiology and an echocardiogram was taken which showed stable mitral valve prolapse. Her shortness of breath looks most unlikely cardiac in origin. Discontinued Lasix and patient advised to quit smoking. Patient to follow up with cardiology as an outpatient 2. Patient was also seen by pulmonology was suggested Ventolin and albuterol nebulization along with her home dose of albuterol/ipratropium. 3. Patient will follow up with cardiology/pulmonology and get an outpatient pulmonary function test done. Code Status: Full Code Heart Healthy Diet Problem List: 1. COPD exacerbation Pain Ratin Pain Location: na Pain Goal: Remain pain free Pain Plan: prn meds Tomorrow's Labs & Rationales: routine Consulting Request: Consulting Specialty: Critical Care Dariana GARZA,Amir 07/07/18 1229: Attending MD Review Statement Attending Statement Attending MD Statement: examined this patient, discuss w/resident/PA/LABORATORY INSPECTOR, agreed w/resident/PA/LABORATORY INSPECTOR, discussed with family, reviewed EMR data (avail), discussed with nursing Attending Assessment/Plan: Pt was seen and evaluated. Chart reviewed. Reports feeling better Lungs: CTA --pt being d/c home today --advised to quit smoking --pt & family in agreement with the plan
--- NOTE | 2018-07-07 11:57 | PN- Cardiology ---
Subjective Subjective: Shortness of breath improving. No chest pain. No palpitations. No diaphoresis. No nausea or vomiting. No lightheadedness or dizziness. Objective Vital Signs and I&Os Vital Signs Date Time Temp Pulse Resp B/P B/P Pulse O2 O2 Flow FiO2 Mean Ox Delivery Rate 07/07 0915 99 Room Air 07/07 0835 83 142/74 07/07 0835 83 142/74 07/07 0800 90 Room Air 07/07 0731 97.8 83 18 142/74 93 Room Air 07/07 0000 Room Air 07/06 2250 98.3 84 16 128/78 93 Room Air 07/06 1502 98.2 89 18 124/64 98 Intake & Output 07/07 1600 07/07 0800 07/07 0000 07/06 1600 07/06 0800 07/06 0000 Intake Total 189 77 8328 50 Output Total 1000 Balance 120 50 200 50 Intake, Oral 334 23 0439 50 Output, Urine 1000 Patient 108 lb 108 lb Weight Physical Exam: Gen: NAD HEENT: normal Lungs: Scattered rales, normal resp. effort Heart: RRR, S1, S2, 1/6 systolic murmur Abdomen: Soft, nontender, no masses Extremities: No clubbing, cyanosis, or edema. Neuro: Alert and oriented x 3, cranial nerves intact Current Medications: Current Medications Sig/Arik Start time Last Medication Dose Route Stop Time Status Admin Acetaminophen 650 MG Q6P PRN 07/05 0445 AC 07/05 PO 1628 Albuterol Sulfate 3 ML Q4P PRN 07/05 2315 AC 07/07 INH 0913 Albuterol Sulfate 3 ML Q6 07/05 0600 DC INH Amlodipine Besylate 5 MG DAILY 07/05 09 AC 07/07 PO 0835 Atorvastatin Calcium 5 MG 1700 07/05 1700 AC 07/06 PO 1633 Bisacodyl 5 MG DAILY 07/06 1727 AC 07/07 PO 0835 Furosemide 20 MG DAILY 07/06 09 AC 07/07 IV 0838 Guaifenesin 600 MG Q12 07/06 09 AC 07/07 PO 0835 Heparin Sodium 5,000 UNIT Q8 07/05 0600 AC 07/07 (Porcine) SC 0615 Ipratropium [place] 2.5 ML Q6-PRN PRN 07/05 0445 AC INH Levothyroxine Sodium 0.05 MG DAILY AC 07/05 0700 AC 07/07 PO 0615 Lidocaine 1 PAT Q24H PRN 07/06 1315 AC EXT Lidocaine 1 PAT Q24H PRN 07/05 0445 DC EXT Lisinopril 20 MG DAILY 07/05 0900 AC 07/07 PO 0835 Nicotine 7 MG DAILY 07/05 1849 AC 07/07 TOP 0843 Omeprazole 20 MG DAILY AC 07/08 0700 AC PO Omeprazole 20 MG DAILY 07/05 0900 DC 07/07 PO 0835 Patient Medication 1 ED ONE ONE 07/06 1845 DE Teaching ED 07/06 1846 Polyethylene Glycol 17 GM DAILY 07/06 1727 AC 07/07 PO 0840 Prednisone 40 MG DAILY 07/06 1100 AC 07/07 PO 0835 Results Last 48 Hrs of Labs/Mics: Laboratory Tests 07/07/18 0634: Anion Gap 10, Estimated GFR 48 L, BUN/Creatinine Ratio 22.7 07/06/18 0650: Anion Gap 8, Estimated GFR > 60, BUN/Creatinine Ratio 18.8, CBC w Diff NO MAN DIFF REQ, RBC 3.82 L, MCV 93.0, MCH 31.7 H, MCHC 34.0, RDW 13.9, MPV 7.5, Gran % 72.7, Lymphocytes % 16.6 L, Monocytes % 10.3 H, Eosinophils % 0.3, Basophils % 0.1, Absolute Granulocytes 7.2 H, Absolute Lymphocytes 1.7, Absolute Monocytes 1.0 H, Absolute Eosinophils 0, Absolute Basophils 0 Recent Imaging Studies: 1. This was a technically difficult examination. 2. Aortic sclerosis is present with mild aortic insufficiency. 3. Mitral leaflet thickening is present with mild to moderate anular calcification and mild mitral insufficiency with mild left atrial enlargement. 4. A small pericardial effusion is present which is hemodynamically insignificant 5. The left ventricular chamber size is normal with an ejection fraction of greater than 75%. 6. Mild tricuspid insufficiency is preseet with no evidence of pulmonary hypertension. 7. Mild LV diastolic dysfunction is present 8. Lipomatous atrial septal hypertrophy is present. 9. Aneurysmal dilatation of the abdominal aorta is present measuring 39 x 39 mm in diameter. Formal evaluation is suggested. Assessment/Plan Assessment/Plan Assessment: 1. Worsening shortness of breath 2. History of COPD 3. Hyponatremia 4. Hypertension 5. Bilateral lower extremity edema 6. History of abdominal aortic aneurysm 7. Ongoing tobacco use 8. Valvular heart disease-recent echocardiogram at Dr. Thomas's office performed in January 2018 showed mild mitral insufficiency and mild to moderate aortic insufficiency. 9. AAA - [address]; 39 mm on echocardiogram Plan: * Discontinue Lasix * Continue other cardiac medication * Follow up in the office in 1-2 week * AAA chronic, and will be followed as outpatient * Smoking cessation Continue telemetry? No
[2018-07-07] MEDS ORDERED: NICOTINE PATCH1 EAC1 TOP (13:17)
[2018-07-07] MEDS ORDERED: PREDNISONE10 M2 PO (13:18)
[2018-07-07] MEDS ORDERED: ALBUTEROL2.5 MG/3 M INH/SOL (13:18)
[2018-07-07] MEDS ORDERED: LIDODERM1 EACH EXT (13:18)
== END 2018-07-07 14:30 | DRG 191 ==
LOC: ERH 19:59 → 1NO 07-05 02:20 → ERHI 07-05 02:20 → ENRESERV 07-05 11:45 → CANRESERV 07-05 11:45 → ENRESERV 07-05 13:37 → ENTRNSPT 07-05 13:50 → EDTRNSPT 07-05 14:41 → EDTRNSPTSTS 07-05 14:41 → ERHI 07-05 14:50 → 1NO 07-05 14:59 → CMPTRNSPT 07-05 15:25 → 1NO 07-07 14:30 → ENTRNSPT 07-07 15:00 → CMPTRNSPT 07-07 15:16
PROVIDERS: Physician Assistant; Student in an Organized Health Care Education/Training Program
DX: J44.1 Chronic obstructive pulmonary disease with (acute) exacerbation (principal); E87.1 Hypo-osmolality and hyponatremia; J44.0 Chronic obstructive pulmonary disease with (acute) lower respiratory infection; J20.9 Acute bronchitis, unspecified; I08.0 Rheumatic disorders of both mitral and aortic valves; I71.4 Abdominal aortic aneurysm, without rupture; E03.9 Hypothyroidism, unspecified; I10 Essential (primary) hypertension; I73.9 Peripheral vascular disease, unspecified; E83.52 Hypercalcemia; M40.294 Other kyphosis, thoracic region; F17.210 Nicotine dependence, cigarettes, uncomplicated; K44.9 Diaphragmatic hernia without obstruction or gangrene; Z88.5 Allergy status to narcotic agent
CPT/HCPCS: 1NP; 36415; 36592; 71046; 82436; 93005; 93010; 93306; 96361; 96374; 97161-GP; 97530-GO; J1644; J1940; J2930